=== PATIENT | male | born 1970 | race Caucasian/White ===

== ENCOUNTER → 2017-03-03 | Outpatient (CLI) | payer SELFPAY ==
[~2017-03-03] MED LIST: ALBU8.5H2 IH; ASPI-892 PO; ASPI-983 PO; ASPI-999 PO; CARV3.12 PO; CARV3.122 PO; COCO1000 PO; COCONUT OIL PO; DIGO250T15 PO; FURO-124 PO; FURO40TA PO; FURO40TA4 PO; FURO80TA83 PO; IBUP-15 PO; LISI-556 PO; MAGN400T6 PO; METO-351 PO; METO-387 PO; METO2.5T PO; OMG1KC PO; POTA-51 PO; POTA10CA43 PO; POTA10TA10 PO; POTA8TAB6 PO; SPIR25TA PO; SPIR25TA3 PO; TR1O15 TOP; UBID1CAP51 PO; UBID1CAP53 PO
[2017-03-03 08:35] LABS: BUN/CREATININE RATIO 25; CALCIUM 9.7 MG/DL (8.5-10.1); CARBON DIOXIDE 25 MMOL/L (21-32); CHLORIDE 92 MMOL/L (98-107); CREATININE SERUM 1.12 MG/DL (0.60-1.30); GFR ESTIMATED > 60; GLUCOSE 113 MG/DL (70-105); POTASSIUM 4.4 MMOL/L (3.6-5.0); SODIUM 130 MMOL/L (135-145)
== END ==
LOC: LAB 08:01
PROVIDERS: ATTEND Nurse Practitioner Family
DX: I50.9 Heart failure, unspecified (principal)
CPT/HCPCS: 36415; 80048; 83735

== ENCOUNTER → 2017-03-03 | Outpatient (CLI) | payer SELFPAY ==
--- NOTE | 2017-03-03 15:10 | Diagnostic Imaging Report ---
PET/CT. INDICATION: Enlarged paratracheal nodes. After intravenous administration of 12.51 mCi of F18-FDG, a series of overlapping emission and transmission PET images was obtained. In the coronal, transaxial and sagittal planes, the area imaged extended from the skull base through the upper thighs. There are no previous PET/CT examinations available for comparison. FINDINGS: The recent CTA chest exam of 02/26/17 noted several enlarged paratracheal lymph nodes measuring up to 2.3 cm in short axis. On this exam, those nodes are again evident and do not seem to have changed significantly in size. There is no hypermetabolic activity associated with these nodes to suggest that they are neoplastic, however. I suspect that they are reactive nodes although the precise etiology is not certain. No other hypermetabolic activity is seen to suggest the presence of neoplasm. There is slightly increased activity involving the larynx but there is no sign of a mass in this area. The increased activity (maximum SUV 3.5) is probably physiologic in nature. As noted on the CT exam, the heart is enlarged. There is no acute abnormality of the neck, chest, abdomen or pelvis on the CT images. There is degenerative disc and bony disease in the lumbar spine and there does seem to be spinal stenosis at L4-L5 and L5-S1. If further study is desired, then MRI would be recommended. IMPRESSION: 1. There is no hypermetabolic activity to suggest the presence of neoplasm. In particular, the paratracheal nodes seen on the previous CT exam are not hypermetabolic. These may represent reactive nodes. 2. If further evaluation of the nodes in the mediastinum is desired, then a short-term (4-6 week) followup CT chest exam would be recommended. 3. There is no acute abnormality of the chest, abdomen or pelvis. 4. These results will be discussed with Dr. Salome Luna. Dictated on workstation # [id number]
== END ==
LOC: RAD 07:58
PROVIDERS: ATTEND Pediatrics
DX: R59.0 Localized enlarged lymph nodes (principal)

== ENCOUNTER 2017-03-23 19:55 | Outpatient (CLI) | payer SELFPAY | END 2017-03-24 06:10 | disposition home or self-care (01) | LOC: SLEEP 19:55 | PROVIDERS: ATTEND Nurse Practitioner Family | DX: G47.33 Obstructive sleep apnea (adult) (pediatric) (principal); I42.9 Cardiomyopathy, unspecified; I50.9 Heart failure, unspecified; E66.01 Morbid (severe) obesity due to excess calories | CPT/HCPCS: 95810 ==

== ENCOUNTER → 2017-04-07 | Outpatient (CLI) | payer SELFPAY ==
[~2017-04-07] MED LIST changes: +IOHEXOL 350 MG/ML 100 ML (OMNIPAQUE 350) VIAL IV ONE; +NS 250 ML (IVPB) BAG IV ONE
--- NOTE | 2017-04-07 13:03 | Diagnostic Imaging Report ---
PROCEDURE: CT chest with contrast only. TECHNIQUE: Multiple contiguous axial images were obtained through the chest after administration of intravenous contrast. INDICATION: Congestive heart failure. Exam compared with 02/26/2017. FINDINGS: The pulmonary arterial branches remain patent. The aorta is patent and nonaneurysmal. Cardiomegaly improved. There is no pleural or pericardial effusion. There has been resolution of mediastinal lymphadenopathy. No suspicious daryl mass or abnormal mediastinal soft tissue infiltration on followup. Venessa appeared normal. There is no focal infiltrate. No lung mass. There are no findings of alveolar or interstitial edema. No abnormal venous distention. The visualized upper abdomen negative. IMPRESSION: Decreased heart size. Clear lungs with no edema or thoracic effusion. Resolution of previous nonspecific mediastinal adenopathy. Dictated by: Dictated on workstation # [id number]
== END ==
LOC: RAD 11:56
PROVIDERS: ATTEND Nurse Practitioner Family
DX: I50.9 Heart failure, unspecified (principal); R59.1 Generalized enlarged lymph nodes
CPT/HCPCS: 71260

== ENCOUNTER → 2017-05-12 | Outpatient (CLI) | payer OTHER ==
[~2017-05-12] MED LIST changes: -IOHEXOL 350 MG/ML 100 ML (OMNIPAQUE 350) VIAL IV ONE; -NS 250 ML (IVPB) BAG IV ONE
== END ==
LOC: CARD 08:57
PROVIDERS: ATTEND Internal Medicine Cardiovascular Disease
DX: I42.0 Dilated cardiomyopathy (principal); I50.22 Chronic systolic (congestive) heart failure; G47.33 Obstructive sleep apnea (adult) (pediatric); E66.8 Other obesity; I34.0 Nonrheumatic mitral (valve) insufficiency
CPT/HCPCS: 93306

== ENCOUNTER → 2017-07-01 | Outpatient (CLI) | payer OTHER | LOC: CARD 09:03 | PROVIDERS: ATTEND Internal Medicine Cardiovascular Disease | DX: I42.0 Dilated cardiomyopathy (principal); I50.9 Heart failure, unspecified; I08.1 Rheumatic disorders of both mitral and tricuspid valves; G47.33 Obstructive sleep apnea (adult) (pediatric); E66.8 Other obesity | CPT/HCPCS: 93306 ==

== ENCOUNTER → 2018-01-25 | Outpatient (CLI) | payer OTHER ==
[~2018-01-25] MED LIST changes: -SPIR25TA3 PO; +SPIR25TA5 PO
[2018-01-25 12:21] LABS: ALANINE AMINOTRANSFERASE 31 U/L (0-55); ALBUMIN 4.6 GM/DL (3.2-4.5); ALKALINE PHOSPHATASE 70 U/L (40-136); BILIRUBIN,TOTAL 0.6 MG/DL (0.1-1.0); BUN/CREATININE RATIO 14; CALCIUM 9.9 MG/DL (8.5-10.1); CARBON DIOXIDE 22 MMOL/L (21-32); CHLORIDE 103 MMOL/L (98-107); CREATININE SERUM 1.01 MG/DL (0.60-1.30); GFR ESTIMATED > 60; GLUCOSE 104 MG/DL (70-105); SODIUM 137 MMOL/L (135-145); TOTAL PROTEIN 8.3 GM/DL (6.4-8.2)
[2018-01-25 12:27] LABS: DIGOXIN < 0.30 NG/ML (0.80-2.00)
== END ==
LOC: CARD 11:16
PROVIDERS: ATTEND Nurse Practitioner Family
DX: I42.0 Dilated cardiomyopathy (principal); I50.22 Chronic systolic (congestive) heart failure; G47.33 Obstructive sleep apnea (adult) (pediatric); I07.1 Rheumatic tricuspid insufficiency; E66.01 Morbid (severe) obesity due to excess calories; Z68.41 Body mass index [BMI] 40.0-44.9, adult
CPT/HCPCS: 36415; 80053; 80162; 93306

== ENCOUNTER 2020-08-10 09:37 | Inpatient (IN) | payer OTHER ==
[~2020-08-10] VITALS: Ht 177.8 cm; Wt 126.8 kg
[~2020-08-10 09:37] MED LIST changes: +ASPI-1238 PO; -ASPI-983 PO; +LISI-729 PO; +MAGN400T8 PO; -METO-387 PO; +MTP25TSR PO
[2020-08-10 10:25] LABS: BASOPHILS % (AUTO) 0 % (0-10); EOSINOPHILS # (AUTO) 0.1 10^3/uL (0.0-0.3); EOSINOPHILS % (AUTO) 1 % (0-10); HEMATOCRIT 47 % (40-54); HEMOGLOBIN 15.6 g/dL (13.3-17.7); LYMPHOCYTES # (AUTO) 1.6 10^3/uL (1.0-4.0); LYMPHOCYTES % (AUTO) 15 % (12-44); MEAN CORPUSCULAR HEMOGLOBIN 29 pg (25-34); MEAN CORPUSCULAR HGB CONC 33 g/dL (32-36); MEAN CORPUSCULAR VOLUME 87 fL (80-99); MEAN PLATELET VOLUME 11.1 fL (9.0-12.2); MONOCYTES # (AUTO) 0.9 10^3/uL (0.0-1.0); MONOCYTES % (AUTO) 8 % (0-12); NEUTROPHILS # (AUTO) 8.1 10^3/uL (1.8-7.8); NEUTROPHILS % (AUTO) 76 % (42-75); PLATELET COUNT 300 10^3/uL (130-400); WHITE BLOOD COUNT 10.7 10^3/uL (4.3-11.0)
[2020-08-10] MEDS ORDERED: dilTIAZem DRIP PRE-MIX 125 ML IV SCH (10:30)
[2020-08-10 10:32] LABS: INR 1.1 (0.8-1.4); PROTHROMBIN TIME PATIENT 14.7 SEC (12.2-14.7)
[2020-08-10 10:38] LABS: MAGNESIUM 1.9 MG/DL (1.6-2.4)
[2020-08-10 10:40] LABS: ALANINE AMINOTRANSFERASE 38 U/L (0-55); ALBUMIN 3.9 GM/DL (3.2-4.5); ALKALINE PHOSPHATASE 69 U/L (40-136); BILIRUBIN,TOTAL 1.2 MG/DL (0.1-1.0); BUN/CREATININE RATIO 19; CALCIUM 9.2 MG/DL (8.5-10.1); CARBON DIOXIDE 22 MMOL/L (21-32); CHLORIDE 103 MMOL/L (98-107); CREATININE SERUM 1.18 MG/DL (0.60-1.30); GFR ESTIMATED > 60; GLUCOSE 146 MG/DL (70-105); POTASSIUM 4.1 MMOL/L (3.6-5.0); SODIUM 135 MMOL/L (135-145); TOTAL PROTEIN 7.1 GM/DL (6.4-8.2)
--- NOTE | 2020-08-10 11:11 | Diagnostic Imaging Report ---
INDICATION: Shortness of breath COMPARISON: 02/26/2017 FINDINGS: Single view chest demonstrates increasing cardiac enlargement with mild interstitial edema. There is no pneumothorax or effusion. Osseous structures stable. IMPRESSION: CHF. Dictated by: Dictated on workstation # [id number]
[2020-08-10 11:29] LABS: BILIRUBIN,URINE NEGATIVE (NEGATIVE); CLARITY,URINE CLEAR; COLOR,URINE ORANGE; GLUCOSE, URINE (UA) NEGATIVE (NEGATIVE); KETONES,URINE NEGATIVE (NEGATIVE); LEUKOCYTE ESTERASE ,URINE NEGATIVE (NEGATIVE); NITRITE,URINE NEGATIVE (NEGATIVE); PH,URINE 5.5 (5-9); PROTEIN,URINE NEGATIVE (NEGATIVE)
[2020-08-10] MEDS ORDERED: LORazepam INJ 2 MG/ML (ATIVAN) VIAL IVP ONE (11:30)
[2020-08-10 11:47] LABS: AMORPHOUS SEDIMENT,UR RARE AMOR URATES /LPF; BACTERIA,URINE NEGATIVE /HPF; SQUAMOUS EPITHELIAL CELL,UR RARE /HPF
--- NOTE | 2020-08-10 11:47 | ED Respiratory ---
General Chief Complaint: Respiratory Problems Stated Complaint: SOB Nursing Triage Note: ARRIVED VIA AMB WITH COMPLAINTS OF INCREASING SOA OVER THE LAST WEEK. DENIES CHEST PAIN Source: patient Exam Limitations: no limitations (VANNESA RANDALL APRN) History of Present Illness Date Seen by Provider: Aug 10, 2020 Time Seen by Provider: 11:47 Initial Comments to ER with general malaise for about 1 week. Has been short of breath for 3 days. History of CHF and was formerly on Lasix but has not followed with Dr. Cason in over a year. He quit all of his medications over 6 months ago so he has been without medications for 6 months. Last echocardiogram from February 2017 shows a dilated cardiomyopathy with ejection fraction of 10 to 15%. He has a history of obstructive sleep apnea and does not use his CPAP. His CT from 2017 showed some enlarged paratracheal lymph nodes which might have been sales representative publications of a lymphoma he is not followed up on that either. Timing/Duration: constant, getting worse Severity: moderate Associated Symptoms: cough, shortness of breath (VANNESA RANDALL APRN) Allergies and Home Medications Allergies Coded Allergies: No Known Drug Allergies (Unverified , 04/18/14) Home Medications Aspirin 81 Mg Tablet.dr, 81 MG PO DAILY Prescribed by: JONATHAN RUST on 02/27/17 1019 Coconut Oil 1,000 Mg Capsule, 1,000 MG PO DAILY, (Reported) Digoxin 250 Mcg Tablet, 0.25 MG PO DAILY Prescribed by: JONATHAN RUST on 02/27/17 1019 Furosemide 80 Mg Tablet, 80 MG PO DAILY Prescribed by: JONATHAN RUST on 02/27/17 1019 Lisinopril 5 Mg Tablet, 5 MG PO DAILY, (Reported) LAST FILLED #30 09-12-15 Magnesium Oxide 400 Mg Tablet, 400 MG PO DAILY, (Reported) LAST FILLED #30 02-28-16 Metolazone 2.5 Mg Tablet, 2.5 MG PO DAILY Prescribed by: JONATHAN RUST on 02/27/17 1019 Metoprolol Succinate 25 Mg Tab.er.24h, 25 MG PO DAILY Prescribed by: JONATHAN RUST on 02/27/17 1019 [place] 3 Polyunsat Fatty Acids 1,000 Mg Cap, 1,000 MG PO DAILY, (Reported) Potassium Chloride 20 Meq Tablet.er, 20 MEQ PO DAILY Prescribed by: JONATHAN RUST on 02/27/17 1019 Spironolactone 25 Mg Tablet, 25 MG PO DAILY Prescribed by: JONATHAN RUST on 02/27/17 1019 Ubidecarenone/Vit E Acetate 1 Each Capsule, 1 CAP PO DAILY, (Reported) Patient Home Medication List Home Medication List Reviewed: Yes (VANNESA RANDALL APRN) Review of Systems Review of Systems Constitutional: see HPI EENTM: see HPI Respiratory: see HPI, dyspnea on exertion, short of breath Cardiovascular: see HPI, palpitations Genitourinary: no symptoms reported Musculoskeletal: no symptoms reported Skin: no symptoms reported Psychiatric/Neurological: No Symptoms Reported Hematologic/Lymphatic: No Symptoms Reported (VANNESA RANDALL APRN) Past Ukqhoel-Zidjsy-Qwexjc Hx Patient Social History Alcohol Use: Denies Use Smoking Status: Never a Smoker Recent Infectious Disease Expo: No Recent Hopitalizations: No (VANNESA RANDALL APRN) Immunizations Up To Date PED Vaccines UTD: No Date of Pneumonia Vaccine: Apr 18, 2014 Date of Influenza Vaccine: Apr 18, 2014 (VANNESA RANDALL APRN) Seasonal Allergies Seasonal Allergies: No (VANNESA RANDALL APRN) Past Medical History Surgeries: No Respiratory: Yes (undiagnosed COPD) Sleep Apnea Currently Using CPAP: Yes Cardiac: Yes (CHF) Neurological: No Reproductive Disorders: No Sexually Transmitted Disease: No HIV/AIDS: No Genitourinary: No Gastrointestinal: Yes Gastroesophageal Reflux Musculoskeletal: No Endocrine: No HEENT: No Loss of Vision: Denies Cancer: No Psychosocial: No Integumentary: Yes ("RASH" (APPEARS TO BE PSORIASIS)) Blood Disorders: No Adverse Reaction/Blood Tranf: No (VANNESA RANDALL APRN) Family Medical History Diabetes mellitus 19 MOTHER Hypertension 19 FATHER Diabetes, Hypertension (VANNESA RANDALL APRN) Physical Exam Vital Signs - First Documented 08/10/20 09:47 Temp 37.0 Pulse 156 Resp 22 B/P (MAP) 158/138 (145) Pulse Ox 97 O2 Delivery Room Air (JASVIR RUBIO MD) Capillary Refill : Less Than 3 Seconds (VANNESA RANDALL APRN) Height: 5'10.00" Weight: 273lbs. 0.0oz. 123.013024st; 38.00 BMI Method:Stated General Appearance: moderate distress, obese, other (Appears quite dyspneic. Heart rate is 158 regular. Blood pressure 111/96. We have started a Cardizem drip and at this point titrated up to 15 mg/h. I tried 2 doses of adenosine 12 mg apiece. These failed to have any result whatsoever on rhythm or rate.) Eyes: Bilateral Eye Normal Inspection, Bilateral Eye PERRL, Bilateral Eye EOMI HEENT: PERRL/EOMI, normal ENT inspection Neck: non-tender, full range of motion Respiratory: lungs clear, accessory muscle use Cardiovascular: no murmur, tachycardia Gastrointestinal: normal bowel sounds, non tender, soft Extremities: No pedal edema Neurologic/Psychiatric: alert, normal mood/affect, oriented x 3 Skin: normal color, warm/dry (VANNESA RANDALL APRN) Focused Exam Lactate Level 08/10/20 10:10: Lactic Acid Level 1.76 (JASVIR RUBIO MD) Lactic Acid Level Laboratory Tests Test 08/10/20 10:10 Lactic Acid Level 1.76 MMOL/L (0.50-2.00) (JASVIR RUBIO MD) Progress/Results/Core Measures Suspected Sepsis Recent Fever Within 48 Hours: No Infection Criteria Present: Suspected New Infection New/Unexplained Altered Menta: No Sepsis Screen: Possible Severe Sepsis Risk SIRS Temperature: Pulse: 156 Respiratory Rate: 22 Laboratory Tests 08/10/20 10:10: White Blood Count 10.7 Blood Pressure 158 /138 Mean: 145 08/10/20 10:10: Lactic Acid Level 1.76 Laboratory Tests 08/10/20 10:10: Creatinine 1.18, INR Comment 1.1, Platelet Count 300, Total Bilirubin 1.2H (VANNESA RANDALL APRN) Results/Orders Lab Results Laboratory Tests Test 08/10/20 09:57 08/10/20 10:10 08/10/20 11:21 Range/Units Influenza Type A (RT-PCR) Not Detected Not Detecte Influenza Type B (RT-PCR) Not Detected Not Detecte SARS-CoV-2 RNA (RT-PCR) Not Detected Not Detecte White Blood Count 10.7 4.3-11.0 10^3/uL Red Blood Count 5.47 4.30-5.52 10^6/uL Hemoglobin 15.6 13.3-17.7 g/dL Hematocrit 47 40-54 % Mean Corpuscular Volume 87 80-99 fL Mean Corpuscular Hemoglobin 29 25-34 pg Mean Corpuscular Hemoglobin Concent 33 32-36 g/dL Red Cell Distribution Width 14.1 10.0-14.5 % Platelet Count 300 130-400 10^3/uL Mean Platelet Volume 11.1 9.0-12.2 fL Immature Granulocyte % (Auto) 1 % Neutrophils (%) (Auto) 76 H 42-75 % Lymphocytes (%) (Auto) 15 12-44 % Monocytes (%) (Auto) 8 0-12 % Eosinophils (%) (Auto) 1 0-10 % Basophils (%) (Auto) 0 0-10 % Neutrophils # (Auto) 8.1 H 1.8-7.8 10^3/uL Lymphocytes # (Auto) 1.6 1.0-4.0 10^3/uL Monocytes # (Auto) 0.9 0.0-1.0 10^3/uL Eosinophils # (Auto) 0.1 0.0-0.3 10^3/uL Basophils # (Auto) 0.0 0.0-0.1 10^3/uL Immature Granulocyte # (Auto) 0.1 0.0-0.1 10^3/uL Prothrombin Time 14.7 12.2-14.7 SEC INR Comment 1.1 0.8-1.4 Activated Partial Thromboplast Time 30 24-35 SEC D-Dimer 0.45 0.00-0.49 UG/ML Sodium Level 135 135-145 MMOL/L Potassium Level 4.1 3.6-5.0 MMOL/L Chloride Level 103 98-107 MMOL/L Carbon Dioxide Level 22 21-32 MMOL/L Anion Gap 10 5-14 MMOL/L Blood Urea Nitrogen 23 H 7-18 MG/DL Creatinine 1.18 0.60-1.30 MG/DL Estimat Glomerular Filtration Rate > 60 BUN/Creatinine Ratio 19 Glucose Level 146 H 70-105 MG/DL Lactic Acid Level 1.76 0.50-2.00 MMOL/L Calcium Level 9.2 8.5-10.1 MG/DL Corrected Calcium 9.3 8.5-10.1 MG/DL Magnesium Level 1.9 1.6-2.4 MG/DL Total Bilirubin 1.2 H 0.1-1.0 MG/DL Aspartate Amino Transf (AST/SGOT) 25 5-34 U/L Alanine Aminotransferase (ALT/SGPT) 38 0-55 U/L Alkaline Phosphatase 69 40-136 U/L Myoglobin 58.1 10.0-92.0 NG/ML Troponin I 0.049 H <0.028 NG/ML C-Reactive Protein High Sensitivity 0.74 H 0.00-0.50 MG/DL B-Type Natriuretic Peptide 775.3 H <100.0 PG/ML Total Protein 7.1 6.4-8.2 GM/DL Albumin 3.9 3.2-4.5 GM/DL Urine Color ORANGE Urine Clarity CLEAR Urine pH 5.5 5-9 Urine Specific [place] >=1.030 1.016-1.022 Urine Protein NEGATIVE NEGATIVE Urine Glucose (UA) NEGATIVE NEGATIVE Urine Ketones NEGATIVE NEGATIVE Urine Nitrite NEGATIVE NEGATIVE Urine Bilirubin NEGATIVE NEGATIVE Urine Urobilinogen 1.0 < = 1.0 MG/DL Urine Leukocyte Esterase NEGATIVE NEGATIVE Urine RBC (Auto) NEGATIVE NEGATIVE Urine RBC NONE /HPF Urine WBC NONE /HPF Urine Squamous Epithelial Cells RARE /HPF Urine Crystals PRESENT H /LPF Urine Amorphous Sediment RARE MARILU URATES H /LPF Urine Bacteria NEGATIVE /HPF Urine Casts NONE /LPF Urine Mucus SMALL H /LPF Urine Culture Indicated CULTURE PENDING (JASVIR RUBIO MD) My Orders Orders - JASVIR RUBIO MD Covid 19 Inhouse Test (08/10/20 09:56) Influenza A And B By Pcr (08/10/20 09:56) Cbc With Automated Diff (08/10/20 10:17) Comprehensive Metabolic Panel (08/10/20 10:17) Blood Culture (08/10/20 10:17) Sputum Culture (08/10/20 10:17) Urinalysis (08/10/20 10:17) Urine Culture (08/10/20 10:17) Protime With Inr (08/10/20 10:17) Partial Thromboplastin Time (08/10/20 10:17) Chest 1 View, Ap/Pa Only (08/10/20 10:17) Ed Iv/Invasive Line Start (08/10/20 10:17) Ed Iv/Invasive Line Start (08/10/20 10:17) Vital Signs Adult Sepsis Patie Q15M (08/10/20 10:17) O2 (08/10/20 10:17) Remove Rings In Anticipation O (08/10/20 10:17) Lactic Acid Analyzer (08/10/20 10:17) Hs C Reactive Protein (08/10/20 10:17) Magnesium (08/10/20 10:17) Ekg Tracing (08/10/20 10:17) Myoglobin Serum (08/10/20 10:17) Monitor-Rhythm Ecg Trace Only (08/10/20 10:17) Troponin I (08/10/20 10:17) Diltiazem Drip Pre-Mix (Cardizem Drip Pr (08/10/20 10:30) Diltiazem Injection (Cardizem Injection) (08/10/20 10:30) BNP (08/10/20 10:33) Lorazepam Injection (Ativan Injection) (08/10/20 11:30) (JASVIR RUBIO MD) Vital Signs/I&O 08/10/20 09:47 Temp 37.0 Pulse 156 Resp 22 B/P (MAP) 158/138 (145) Pulse Ox 97 O2 Delivery Room Air (JASVIR RUBIO MD) Vital Signs/I&O Capillary Refill : Less Than 3 Seconds (VANNESA RANDALL APRN) Blood Pressure Mean: 145 Departure Communication (Admissions) 1220-he is hemodynamically stable with a rate persistently at 158 which has not budged with Cardizem or adenosine. Blood pressure stable at 110/89. Unknown how long he has been in this rhyth and is hemodynamically stable so cannot justify electrical cardioversion. Spoke with Dr. Cason. We will give 0.5 mg of digoxin IV now as well as Eliquis. We will then do digoxin 0.25 mg IV every 2 hours x2 upstairs. He will be admitted to ICU to the medical service. I did put the patient on BiPAP (at 10/5 35% FiO2) for his tachypnea (RR-28)/dyspnea. He was never hypoxic and not in overt respiratory failure. 1234-he does feel symptomatically improved while wearing the BiPAP so we will continue it. (VANNESA RANDALL APRN) Impression Primary Impression: Atrial flutter with rapid ventricular response Additional Impression: CHF (congestive heart failure) Disposition: ADMITTED INPATIENT Condition: Stable Admissions Decision to Admit Reason: Admit from ER (General) Decision to Admit/Date: Aug 10, 2020 Time/Decision to Admit Time: 12:01 (VANNESA RANDALL APRN) Departure-Patient Inst. Referrals: KYM JORDAN DO (PCP) Primary Care Physician SEAN GORDON APRN (Family) Primary Care Physician ATTENDING PHYSICIAN NOTE: I was physically present as attending physician in the emergency department during the care of this patient, but I was not directly involved in the decision making or delivery of care for this patient. (JASVIR RUBIO MD) VANNESA RANDALL APRN Aug 10, 2020 11:47 JASVIR RUBIO MD Aug 11, 2020 06:33
[2020-08-10] MEDS ORDERED: ADENOSINE 6 MG/2 ML (ADENOCARD) VIAL IV ONE ×3 (11:54→12:15)
[2020-08-10 12:18] VITALS: BP 110/89
[2020-08-10] MEDS ORDERED: DIGOXIN 0.25 MG/ML (LANOXIN) 2 ML AMP IV ONE (12:30)
[2020-08-10] MEDS ORDERED: APIXABAN 5 MG (ELIQUIS) TABLET PO ONE (12:30)
[2020-08-10 14:12] VITALS: BP 158/138
[2020-08-10] MEDS ORDERED: CATHETER FLUSH 10 ML SYR IV PRN (14:15)
[2020-08-10] MEDS: CATHETER FLUSH 10 ML SYR IV SCH ×2 (14:23→19:54)
[2020-08-10] MEDS: dilTIAZem DRIP PRE-MIX 125 ML IV SCH ×2 (14:24→18:42)
[2020-08-10] MEDS ORDERED: FUROSEMIDE 40 MG/4 ML INJ (LASIX) IVP NR (14:30)
[2020-08-10] MEDS ORDERED: KCL 20 MEQ TAB (K-DUR) PO NR (14:30)
--- NOTE | 2020-08-10 14:46 | Consultation-Cardiology ---
HPI-Cardiology Cardiology Consultation: Date of Consultation 08/10/20 Time Seen by a Provider: 14:25 Date of Admission 08-10-20 Attending Physician Vickey Pineda MD Admitting Physician [place] Consulting Physician Dea Macario MD HPI: Chief Complaint: New onset a-fib/flutter Acute decompensated CHF Mr. Ellis is a 49 yr old male admitted to ICU 12 from the ED with new onset a- fib/flutter with RVR and decompensated CHF. He states for the last week he has felt increasing SOB and rapid heart beat. No c/o CP, LE swelling, syncope or near syncope. He reports he has not been using his Bi-pap for over a year and has not been taking any of his medications for over a year. He denies any fever chills. No c/o n/v/d. Review of Systems-Cardiology Review of Systems Constitutional: No chills, No fever; tiredness Eyes: No vision change Ears/Nose/Throat: No epistaxis, No recent hearing loss Respiratory: As described under HPI Cardiovascular: As described under HPI Gastrointestinal: No constipation, No diarrhea, No nausea, No vomiting Genitourinary: No dysuria, No hematuria Musculoskeletal: no symptoms reported Skin: No rash on exposed areas, No ulcerations on exposed areas Psychiatric/Neurological: No anxiety, No depression, No seizure, No focal weakness, No syncope Hematologic: No bleeding abnormalities WPU-Kbqaao-Ybpgcq Hx Patient Social History Smoking Status: Never a Smoker Have you traveled recently?: No Immunizations Up To Date Date of Pneumonia Vaccine: Apr 18, 2014 Date of Influenza Vaccine: Apr 18, 2014 Past Medical History PMH As described under Assessment. Family Medical History Family Medical History: He reports his father had HTN. Family History: Diabetes mellitus 19 MOTHER Hypertension 19 FATHER Allergies and Home Medications Allergies Coded Allergies: No Known Drug Allergies (Unverified , 04/18/14) Home Medications Apixaban 5 Mg Tablet, 5 MG PO BID Prescribed by: EDGAR CHOPRA on 08/13/20 1059 Aspirin 81 Mg Tablet.dr, 81 MG PO DAILY Prescribed by: JONATHAN RUST on 02/27/17 1019 Carvedilol 3.125 Mg Tablet, 3.125 MG PO BID Prescribed by: EDGAR CHOPRA on 08/13/20 1059 Coconut Oil 1,000 Mg Capsule, 1,000 MG PO DAILY, (Reported) Digoxin 250 Mcg Tablet, 0.25 MG PO DAILY Prescribed by: JONATHAN RUST on 02/27/17 1019 Diltiazem HCl 180 Mg Cap.er.24h, 180 MG PO DAILY Prescribed by: EDGAR CHOPRA on 08/13/20 1059 Furosemide 80 Mg Tablet, 80 MG PO DAILY Prescribed by: JONATHAN RUST on 02/27/17 1019 Lisinopril 5 Mg Tablet, 5 MG PO DAILY, (Reported) LAST FILLED #30 09-12-15 Magnesium Oxide 400 Mg Tablet, 400 MG PO DAILY, (Reported) LAST FILLED #30 02-28-16 Metolazone 2.5 Mg Tablet, 2.5 MG PO DAILY Prescribed by: JONATHAN RUST on 02/27/17 1019 [place] 3 Polyunsat Fatty Acids 1,000 Mg Cap, 1,000 MG PO DAILY, (Reported) Pantoprazole Sodium 40 Mg Tablet.dr, 40 MG PO DAILY Prescribed by: EDGAR CHOPRA on 08/13/20 1059 Potassium Chloride 20 Meq Tablet.er, 20 MEQ PO DAILY Prescribed by: OJNATHAN RUST on 02/27/17 101 Spironolactone 25 Mg Tablet, 25 MG PO DAILY Prescribed by: JONATHAN RUST on 02/27/17 1019 Ubidecarenone/Vit E Acetate 1 Each Capsule, 1 CAP PO DAILY, (Reported) Physical Exam-Cardiology Physical Exam Vital Signs/I&O 08/15/20 00:00 Intake Total 1460 ml Balance 1460 ml Capillary Refill : Less Than 3 Seconds Constitutional: AAO x 3, well-developed, well-nourished HEENT: PERRL, hearing is well preserved, oral hygience is good Neck: No carotid bruit; carotid pulses are 2 + bilaterally Respiratory: No accessory muscle use, No respiratory distress; chest expansion is symmetric, chest is bilaterally symmetric, other (diminished lower lobes bilat) Cardiovascular: irregularly irregular; No JVD; S1 and S2 Gastrointestinal: No tender; soft, round, audible bowel sounds Extremities: no lower extremity edema bilateral Neurologic/Psychiatric: grossly intact (moves all extremities) Skin: No rash on exposed areas, No ulcerations on exposed areas Data Review Labs Microbiology 08/10/20 Urine Culture - Final, Complete NO GROWTH 08/10/20 Blood Culture - Preliminary, Resulted No growth Radiology NAME: MIGDALIA ELLIS [facility] REC#: [id number] PT STATUS: REG ER : 1970 PHYSICIAN: JASVIR RUBIO MD ADMIT DATE: 08/10/20/ER Draft Date of Exam:08/10/20 CHEST 1 VIEW, AP/PA ONLY INDICATION: Shortness of breath COMPARISON: 02/26/2017 FINDINGS: Single view chest demonstrates increasing cardiac enlargement with mild interstitial edema. There is no pneumothorax or effusion. Osseous structures stable. IMPRESSION: CHF. Dictated on workstation # [id number] Dict: 08/10/20 1109 Trans: 08/10/20 1111 [facility] [id number] Interpreted by: CYN ALLEN Electronically signed by: ECG Impression ECG Comment Atrial fib/flutter A/P-Cardiology Assessment/Admission Diagnosis New onset a-fib/flutter Acute on chronic systolic CHF d/t decompensated CHF d/t dilated cardiomyopathy d/t non-compliance with medications of treatment of ANISA Mild troponin elevation likely secondary to acute decompensated CHF and/or a- fib/flutter with RVR Non ischemic dilated cardiomyopathy. - Cardiomyopathy first diagnosed in April 2014 and improved with treatment to LVEF of 45-50% on echo eval of May 2015; then had recurrence due to noncompliance. - Echo of 02/24/17 shows marked cardiomegaly and LVEF 10 to 15%. Most recent echo of Dec 2018 showed LVEF improved to 50-55% with mild to mod regurg, RVSP [address] angio of the chest on 02/26/17 shows mediastinal lymphadenopathy: lymphoma is a concern. This is being followed by Dr Connolly (his manager commodities) and Dr Brittanie Luna (his pcp) ANISA for which he is on Bi-pap tx (followed by Dr. Connolly) Abnormally enlarged paratracheal lymph nodes measuring up to maximally 2.3 cm in short axis with multiple subcentimeter short axis AP window lymph nodes. Metastatic disease and lymphoma would be in the differential diagnosis for these abnormally enlarged lymph nodes. Per CTA of 02-26-17 No significant coronary artery disease (angiographically normal coronary arteries with a right dominant system) per cardiac cath of 04-18-2014 Obesity, BMI of approx 41 Quit smoking in 2012 Erectile dysfunction Discussion and Recomendations New onset a-fib/flutter with RVR - treat with IV Cardizem and Dig Start OAC with Eliquis for stroke prophylaxis Acute on chronic decompensated CHF - treat with diuretics Echocardiogram to eval LVEF Discussed the importance of compliance with medications and Bi-pap Monitor lab closely Further recs will be based on his hospital course JONATHAN RUST Aug 10, 2020 14:46
[2020-08-10] MEDS: DIGOXIN 0.25 MG/ML (LANOXIN) 2 ML AMP IV SCH ×2 (14:51→17:53)
[2020-08-10] MEDS: RT-ALBUTEROL/IPRATROPIUM 3 ML (DUONEB) VIAL INH SCH ×2 (15:13→22:19)
--- NOTE | 2020-08-10 15:30 | Consultation-Cardiology ---
HPI-Cardiology Cardiology Consultation: Date of Consultation 08/10/20 Time Seen by a Provider: 15:00 Date of Admission Attending Physician Vickey Pineda MD Admitting Physician [place] Consulting Physician MICHAEL CADENA MD, MA, FACP, FACC, FSCAI, CCDS HPI: Chief Complaint: Reason for consultation: New onset a-fib/flutter and acute, decompensated CHF HPI Mr. Ellis is a 49 yr old male admitted to ICU 12 from the ED with new onset a-fib/flutter with RVR and decompensated CHF. He states for the last week he has felt increasing SOB and rapid heart beat. No c/o CP, LE swelling, syncope or near syncope. He reports he has not been using his Bi-pap for over a year and has not been taking any of his medications for over a year. He denies any fever chills. No c/o n/v/d. Review of Systems-Cardiology Review of Systems Constitutional: No chills, No fever; tiredness Eyes: No vision change Ears/Nose/Throat: No epistaxis, No recent hearing loss Respiratory: As described under HPI Cardiovascular: As described under HPI Gastrointestinal: No constipation, No diarrhea, No nausea, No vomiting Genitourinary: No dysuria, No hematuria Musculoskeletal: no symptoms reported Skin: No rash on exposed areas, No ulcerations on exposed areas Psychiatric/Neurological: No anxiety, No depression, No seizure, No focal weakness, No syncope Hematologic: No bleeding abnormalities FYC-Jbgxnl-Vqldrv Hx Patient Social History Smoking Status: Never a Smoker Have you traveled recently?: No Immunizations Up To Date Date of Pneumonia Vaccine: Apr 18, 2014 Date of Influenza Vaccine: Apr 18, 2014 Past Medical History PMH As described under Assessment. Family Medical History Family Medical History: He reports his father had HTN. Family History: Diabetes mellitus 19 MOTHER Hypertension 19 FATHER Allergies and Home Medications Allergies Coded Allergies: No Known Drug Allergies (Unverified , 04/18/14) Home Medications Aspirin 81 Mg Tablet.dr, 81 MG PO DAILY Prescribed by: JONATHAN RUST on 02/27/17 1019 Coconut Oil 1,000 Mg Capsule, 1,000 MG PO DAILY, (Reported) Digoxin 250 Mcg Tablet, 0.25 MG PO DAILY Prescribed by: JONATHAN RUST on 02/27/17 1019 Furosemide 80 Mg Tablet, 80 MG PO DAILY Prescribed by: JONATHAN RUST on 02/27/17 1019 Lisinopril 5 Mg Tablet, 5 MG PO DAILY, (Reported) LAST FILLED #30 09-12-15 Magnesium Oxide 400 Mg Tablet, 400 MG PO DAILY, (Reported) LAST FILLED #30 02-28-16 Metolazone 2.5 Mg Tablet, 2.5 MG PO DAILY Prescribed by: JONATHAN RUST on 02/27/17 1019 Metoprolol Succinate 25 Mg Tab.er.24h, 25 MG PO DAILY Prescribed by: JONATHAN RUST on 02/27/17 1019 [place] 3 Polyunsat Fatty Acids 1,000 Mg Cap, 1,000 MG PO DAILY, (Reported) Potassium Chloride 20 Meq Tablet.er, 20 MEQ PO DAILY Prescribed by: JONATHAN RUST on 02/27/17 1019 Spironolactone 25 Mg Tablet, 25 MG PO DAILY Prescribed by: JONATHAN RUST on 02/27/17 1019 Ubidecarenone/Vit E Acetate 1 Each Capsule, 1 CAP PO DAILY, (Reported) Patient Home Medication List Home Medication List Reviewed: Yes Physical Exam-Cardiology Physical Exam Vital Signs/I&O 08/10/20 08/10/20 08/10/20 08/10/20 09:47 12:18 13:46 14:00 Temp 37.0 Pulse 156 158 156 101 Resp 22 18 28 B/P (MAP) 158/138 (145) 110/80 99/79 (86) Pulse Ox 97 100 97 98 O2 Delivery Room Air Room Air Room Air O2 Flow Rate 35.00 08/10/20 08/10/20 08/10/20 08/10/20 14:12 14:37 15:00 15:13 Temp 37.0 Pulse 156 103 99 Resp 14 B/P (MAP) 108/96 (100) Pulse Ox 97 94 98 O2 Delivery Room Air Room Air FiO2 21 Capillary Refill : Less Than 3 Seconds Constitutional: AAO x 3, well-developed, well-nourished HEENT: PERRL, hearing is well preserved, oral hygience is good Neck: No carotid bruit; carotid pulses are 2 + bilaterally Respiratory: No accessory muscle use, No respiratory distress; chest expansion is symmetric, chest is bilaterally symmetric, other (diminished lower lobes bilat) Cardiovascular: irregularly irregular; No JVD; S1 and S2 Gastrointestinal: No tender; soft, round, audible bowel sounds Extremities: no lower extremity edema bilateral Neurologic/Psychiatric: oriented x 3, other (moves all limbs equally) Skin: No rash on exposed areas, No ulcerations on exposed areas Data Review Labs Laboratory Tests 08/10/20 09:57: Influenza Type A (RT-PCR) Not Detected, Influenza Type B (RT-PCR) Not Detected, SARS-CoV-2 RNA (RT-PCR) Not Detected 08/10/20 10:10: White Blood Count 10.7, Red Blood Count 5.47, Hemoglobin 15.6, Hematocrit 47, Mean Corpuscular Volume 87, Mean Corpuscular Hemoglobin 29, Mean Corpuscular Hemoglobin Concent 33, Red Cell Distribution Width 14.1, Platelet Count 300, Mean Platelet Volume 11.1, Immature Granulocyte % (Auto) 1, Neutrophils (%) (Auto) 76H, Lymphocytes (%) (Auto) 15, Monocytes (%) (Auto) 8, Eosinophils (%) (Auto) 1, Basophils (%) (Auto) 0, Neutrophils # (Auto) 8.1H, Lymphocytes # (Auto) 1.6, Monocytes # (Auto) 0.9, Eosinophils # (Auto) 0.1, Basophils # (Auto) 0.0, Immature Granulocyte # (Auto) 0.1, Prothrombin Time 14.7, INR Comment 1.1, Activated Partial Thromboplast Time 30, D-Dimer 0.45, Sodium Level 135, Potassium Level 4.1, Chloride Level 103, Carbon Dioxide Level 22, Anion Gap 10, Blood Urea Nitrogen 23H, Creatinine 1.18, Estimat Glomerular Filtration Rate > 60, BUN/Creatinine Ratio 19, Glucose Level 146H, Lactic Acid Level 1.76, Calcium Level 9.2, Corrected Calcium 9.3, Magnesium Level 1.9, Total Bilirubin 1.2H, Aspartate Amino Transf (AST/SGOT) 25, Alanine Aminotransferase (ALT/SGPT) 38, Alkaline Phosphatase 69, Myoglobin 58.1, Troponin I 0.049H, C-Reactive Protein High Sensitivity 0.74H, B-Type Natriuretic Peptide 775.3H, Total Protein 7.1, Albumin 3.9 08/10/20 11:21: Urine Color ORANGE, Urine Clarity CLEAR, Urine pH 5.5, Urine Specific [place] >=1.030, Urine Protein NEGATIVE, Urine Glucose (UA) NEGATIVE, Urine Ketones NEGATIVE, Urine Nitrite NEGATIVE, Urine Bilirubin NEGATIVE, Urine Urobilinogen 1.0, Urine Leukocyte Esterase NEGATIVE, Urine RBC (Auto) NEGATIVE, Urine RBC NONE, Urine WBC NONE, Urine Squamous Epithelial Cells RARE, Urine Crystals PRESENTH, Urine Amorphous Sediment RARE MARILU URATESH, Urine Bacteria NEGATIVE, Urine Casts NONE, Urine Mucus SMALLH, Urine Culture Indicated CULTURE PENDING A/P-Cardiology Assessment/Admission Diagnosis New onset a-fib/flutter with RVR, probably related to untreated (due to noncompliance) ANISA Acute on chronic systolic CHF d/t decompensated CHF d/t dilated cardiomyopathy d/t non-compliance with medications of treatment of ANISA Mild troponin elevation likely secondary to acute decompensated CHF and/or a- fib/flutter with RVR Non ischemic dilated cardiomyopathy. - Cardiomyopathy first diagnosed in April 2014 and improved with treatment to LVEF of 45-50% on echo eval of May 2015; then had recurrence due to noncompliance. - Echo of 02/24/17 shows marked cardiomegaly and LVEF 10 to 15%. Most recent echo of Dec 2018 showed LVEF improved to 50-55% with mild to mod regurg, RVSP [address] angio of the chest on 02/26/17 shows mediastinal lymphadenopathy: lymphoma is a concern. This is being followed by Dr Connolly (his development associate) and Dr Brittanie Luna (his pcp) ANISA for which he is on Bi-pap tx (followed by his development associate) Abnormally enlarged paratracheal lymph nodes measuring up to maximally 2.3 cm in short axis with multiple subcentimeter short axis AP window lymph nodes. Metastatic disease and lymphoma would be in the differential diagnosis for these abnormally enlarged lymph nodes. Per CTA of 02-26-17. Managed by his pcp No significant coronary artery disease (angiographically normal coronary arteries with a right dominant system) per cardiac cath of 04-18-2014 Obesity, BMI of approx 41 Quit smoking in 2011 Erectile dysfunction Discussion and Recomendations New onset a-fib/flutter with RVR - treat with IV Cardizem and Dig Start OAC with Eliquis for stroke prophylaxis Acute on chronic decompensated CHF - treat with diuretics Echocardiogram to eval LVEF Discussed the importance of compliance with medications and Bi-pap Monitor lab closely Further recs will be based on his hospital course MICHAEL CADENA MD FACP FACC CCDS Aug 10, 2020 15:30
[2020-08-10] MEDS ORDERED: PANTOPRAZOLE 40 MG (PROTONIX) VIAL IV NR (18:00)
[2020-08-10] MEDS ORDERED: ANTACID SUSP 30 ML UDC (MYLANTA) PO PRN (18:00)
--- NOTE | 2020-08-10 18:12 | Tele-ICU Progress Note ---
Subjective Date Seen by a Provider: Aug 10, 2020 Time Seen by a Provider: 14:30 Subjective/Events-last exam This new admission reviewed with the RN. Patient has a history of congestive cardiomyopathy with estimated ejection fraction of 15% about 6 months ago. Since then he has not been compliant with his medications and the diuretics. Now he came with shortness of breath and found to have a new onset atrial fibrillation with rapid ventricular rate. The chest x-ray revealed cardiomegaly with interstitial edema. He is given Lasix. He is feeling somewhat better. He is not tolerating BiPAP well. Heart rate is controlled now with IV Cardizem drip. He also complaining of heartburn Sepsis Event Evaluation Height, Weight, BMI Height: 5'10.00" Weight: 273lbs. 0.0oz. 123.136416bb; 38.81 BMI Method:Stated Focused Exam Lactate Level 08/10/20 10:10: Lactic Acid Level 1.76 Exam Exam Patient acknowledged, consented, and participated in this virtual visit which was conducted using real time audio/video Vital Signs Date Time Temp Pulse Resp B/P (MAP) Pulse Ox O2 Delivery O2 Flow Rate FiO2 08/10/20 17:00 100 12 99/82 (88) 97 Room Air 08/10/20 16:40 Room Air 08/10/20 16:35 36.4 08/10/20 16:00 93 15 100/61 (74) 99 Room Air 08/10/20 15:13 98 Room Air 08/10/20 15:00 99 14 108/96 (100) 94 Room Air 08/10/20 14:37 103 08/10/20 14:12 37.0 156 97 21 08/10/20 14:00 Room Air 08/10/20 14:00 101 28 99/79 (86) 98 Room Air 08/10/20 13:51 36.8 08/10/20 13:46 156 18 110/80 97 Room Air 08/10/20 12:18 158 100 35.00 08/10/20 09:47 37.0 156 22 158/138 (145) 97 Room Air Height & Weight Height: 5'10.00" Weight: 273lbs. 0.0oz. 123.371638gv; 38.81 BMI Method:Stated General Appearance: No Apparent Distress, WD/WN, Chronically ill, Mild Distress, Obese, Other Capillary Refill: Less Than 3 Seconds Gastrointestinal: normal bowel sounds, non tender, soft Other comments RN patient has a bilateral few rales, regular rhythm. No rhonchi.. Results Lab Laboratory Tests 08/10/20 10:10 Meds reviewed Radiology cxr reviewed. showed cardiomegaly and interstitial edema Assessment/Plan Assessment/Plan 1. Acute and chronic systolic congestive heart failure 2. New onset atrial fibrillation with rapid ventricular rate 3. Heartburn 4. Noncompliance with medications. Recommendations 1. Continue Cardizem drip per air compressor mechanic 2. IV Lasix 3. We will give him Maalox and IV Protonix. 4. Continue monitoring electrolytes, magnesium and phosphate. 5. Suggest stroke prophylaxis per cardiology. Critical Care: Critically Ill Patient IRENA CHIU MD Aug 10, 2020 18:12
[2020-08-10] MEDS: APIXABAN 5 MG (ELIQUIS) TABLET PO SCH (19:53)
[2020-08-10] MEDS ORDERED: lisINopril 5 MG (PRINIVIL) TABLET PO NR (21:00)
[2020-08-10] MEDS ORDERED: SPIRONOLACTONE 25 MG (ALDACTONE) TAB PO NR (21:00)
[2020-08-11 03:52] LABS: BASOPHILS % (AUTO) 0 % (0-10); EOSINOPHILS # (AUTO) 0.2 10^3/uL (0.0-0.3); EOSINOPHILS % (AUTO) 2 % (0-10); HEMATOCRIT 42 % (40-54); HEMOGLOBIN 14.2 g/dL (13.3-17.7); LYMPHOCYTES # (AUTO) 1.8 10^3/uL (1.0-4.0); LYMPHOCYTES % (AUTO) 18 % (12-44); MEAN CORPUSCULAR HEMOGLOBIN 29 pg (25-34); MEAN CORPUSCULAR HGB CONC 34 g/dL (32-36); MEAN CORPUSCULAR VOLUME 86 fL (80-99); MEAN PLATELET VOLUME 11.3 fL (9.0-12.2); MONOCYTES # (AUTO) 0.9 10^3/uL (0.0-1.0); MONOCYTES % (AUTO) 9 % (0-12); NEUTROPHILS % (AUTO) 71 % (42-75); PLATELET COUNT 249 10^3/uL (130-400); WHITE BLOOD COUNT 9.9 10^3/uL (4.3-11.0)
[2020-08-11 04:04] LABS: CHLORIDE 102 MMOL/L (98-107); POTASSIUM 3.9 MMOL/L (3.6-5.0); SODIUM 137 MMOL/L (135-145)
[2020-08-11 04:05] LABS: CALCIUM 8.4 MG/DL (8.5-10.1)
[2020-08-11 04:06] LABS: GLUCOSE 115 MG/DL (70-105); TRIGLYCERIDES 94 MG/DL (<150); VLDL CHOLESTEROL 19 MG/DL (5-40)
[2020-08-11 04:08] LABS: CARBON DIOXIDE 21 MMOL/L (21-32)
[2020-08-11 04:10] LABS: CREATININE SERUM 1.05 MG/DL (0.60-1.30); GFR ESTIMATED > 60; PHOSPHORUS 3.6 MG/DL (2.3-4.7)
[2020-08-11 04:11] LABS: BUN/CREATININE RATIO 22; CHOLESTEROL 139 MG/DL (< 200)
[2020-08-11 04:12] LABS: HDL CHOLESTEROL 30 MG/DL (40-60)
[2020-08-11 04:13] LABS: MAGNESIUM 2.1 MG/DL (1.6-2.4)
[2020-08-11] MEDS: KCL 20 MEQ TAB (K-DUR) PO SCH (05:58)
[2020-08-11] MEDS: CATHETER FLUSH 10 ML SYR IV SCH ×3 (06:11→22:00)
[2020-08-11] MEDS: RT-ALBUTEROL/IPRATROPIUM 3 ML (DUONEB) VIAL INH SCH ×4 (06:36→18:35)
[2020-08-11] MEDS: APIXABAN 5 MG (ELIQUIS) TABLET PO SCH ×2 (08:48→20:20)
[2020-08-11] MEDS: PANTOPRAZOLE 40 MG (PROTONIX) VIAL IV SCH (08:48)
[2020-08-11] MEDS: lisINopril 5 MG (PRINIVIL) TABLET PO SCH ×2 (08:49→09:48)
[2020-08-11] MEDS: FUROSEMIDE 40 MG/4 ML INJ (LASIX) IVP SCH (08:49)
[2020-08-11] MEDS: SPIRONOLACTONE 25 MG (ALDACTONE) TAB PO SCH (08:49)
[2020-08-11] MEDS ORDERED: NS IV 500 ML 500 ML ONE (10:14)
[2020-08-11] MEDS: NS IV 500 ML 500 ML IV SCH (10:26)
--- NOTE | 2020-08-11 11:06 | History & Physical-Hospitalist ---
History of Present Illness HPI/Chief Complaint to ER with general malaise for about 1 week. Has been short of breath for 3 days. History of CHF and was formerly on Lasix but has not followed with Dr. Cason in over a year. He quit all of his medications over 6 months ago so he has been without medications for 6 months. Last echocardiogram from February 2017 shows a dilated cardiomyopathy with ejection fraction of 10 to 15%. He has a history of obstructive sleep apnea and does not use his CPAP. His CT from 2018 showed some enlarged paratracheal lymph nodes which might have been technical support representative of a lymphoma he is not followed up on that either. Upon my arrival patient reports he is feeling better less shortness of breath. He stated that his heart rate a bit little bit faster than usual and irregular over the past week prior to admission but became more short of breath and felt like he was filling up with fluid again with heart rates increasing into the 150 range that he was monitoring on his home O2 sat probe. Reports that his oxygen levels were never below the mid 90 range. He has not been aware of ever having been told he was in atrial fibrillation in the past.He has not been aware of any night sweats chills fever change in weight Date Seen 08/11/20 Time Seen by a Provider: 09:30 Attending Physician Luc Landry MD [facility] Referring Physician Date of Admission Aug 10, 2020 at 12:06 Home Medications & Allergies Home Medications Reviewed patient Home Medication Reconciliation performed by pharmacy medication reconciliations photographic reproduction technician and/or nursing. Patients Allergies have been reviewed. Allergies Allergies Coded Allergies No Known Drug Allergies (Unverified04/18/14) Past Totmdks-Ybmtyj-Qvgpex Hx Patient Social History Smoking Status: Never a Smoker Immunizations Up To Date Date of Influenza Vaccine: Apr 18, 2014 Tetanus Booster (TDap): Unknown PED Vaccines UTD: No Date of Pneumonia Vaccine: Apr 18, 2014 Seasonal Allergies Seasonal Allergies: No Current Status Advance Directives: No Communicates: Verbally Primary Language: Ukrainian Preferred Spoken Language: Ukrainian Is interpretation needed?: No Implanted or Applied Medical D: None Past Medical History Sleep Apnea Currently Using CPAP: Yes Sexually Transmitted Disease: No HIV/AIDS: No Gastroesophageal Reflux Loss of Vision: Denies Blood Disorders: No Adverse Reaction/Blood Tranf: No ANISA CHF Family Medical History Diabetes mellitus 19 MOTHER Hypertension 19 FATHER Diabetes, Hypertension Review of Systems Constitutional: see HPI Physical Exam Physical Exam Vital Signs Vital Signs - First Documented 08/10/20 08/10/20 08/10/20 09:47 12:18 14:12 Temp 37.0 Pulse 156 Resp 22 B/P (MAP) 158/138 (145) Pulse Ox 97 O2 Delivery Room Air O2 Flow Rate 35.00 FiO2 21 Capillary Refill : Less Than 3 Seconds Height, Weight, BMI Height: 5'10.00" Weight: 273lbs. 0.0oz. 123.790743qq; 38.81 BMI Method:Stated General Appearance: No Apparent Distress, Obese Respiratory: Chest Non Tender, Lungs Clear, Normal Breath Sounds, No Accessory Muscle Use, No Respiratory Distress Cardiovascular: No Murmur, Irregularly Irregular Gastrointestinal: Normal Bowel Sounds, No Organomegaly, No Pulsatile Mass, Non Tender, Soft Extremity: Normal Capillary Refill, Normal Inspection, Normal Range of Motion, Non Tender, No Calf Tenderness, No Pedal Edema Results Results/Procedures Labs Laboratory Tests 08/10/20 10:10 08/11/20 03:18 Patient resulted labs reviewed. Assessment/Plan Admission Diagnosis 1. Atrial fibrillation with rapid ventricular response under improved control on Cardizem likely switch to oral medication defer to Dr. Cason. 2. Acute on chronic systolic heart failure aggravated by untreated obstructive sleep apnea and atrial fibrillation ischemic etiology less likely defer to Dr. Cason continue diuretic therapy. 3. Untreated obstructive sleep apnea secondary to patient noncompliance heart failure also aggravated by longstanding noncompliance. Patient states he will after discussion resume using his CPAP machine. Admission Status: Inpatient Order (span 2 midnights) Reason for Inpatient Admission: See admission diagnosis LUC LANDRY MD Aug 11, 2020 11:06
[2020-08-11] MEDS: dilTIAZem DRIP PRE-MIX 125 ML IV SCH (14:17)
[2020-08-11] MEDS: DIGOXIN 0.25 MG (LANOXIN) TAB PO SCH (16:03)
--- NOTE | 2020-08-11 16:43 | Progress Note - Cardiology ---
Cardiology SOAP Progress Note Subjective: Persistent shortness of breath No cp or palp or syncope No n/v/d Some anxiety No swelling Gen malaise and weakness Objective: I&O/Vital Signs 08/11/20 08/11/20 08/11/20 08/11/20 05:00 06:00 06:00 06:36 Pulse 96 80 81 Resp B/P (MAP) 105/68 (80) 108/84 (92) 108/84 (92) Pulse Ox 97 86 94 98 O2 Delivery Room Air Room Air Room Air Room Air 08/11/20 08/11/20 08/11/20 08/11/20 07:00 07:00 07:51 08:00 Temp 36.0 Pulse 91 97 Resp 26 B/P (MAP) 120/94 (103) Pulse Ox 97 O2 Delivery Room Air Room Air 08/11/20 08/11/20 08/11/20 08/11/20 08:00 09:00 10:00 10:52 Pulse 116 121 101 Resp 20 29 26 B/P (MAP) 114/94 (101) 129/95 (106) Pulse Ox 97 97 97 98 O2 Delivery Room Air Room Air Room Air Room Air 08/11/20 08/11/20 08/11/20 08/11/20 11:00 12:00 12:00 12:15 Temp 36.4 Pulse 101 106 Resp 11 16 B/P (MAP) 93/75 (81) 105/60 (75) Pulse Ox 98 96 O2 Delivery Room Air Room Air Room Air 08/11/20 08/11/20 08/11/20 08/11/20 12:56 13:00 14:00 14:28 Pulse 117 83 96 Resp 15 27 B/P (MAP) 103/92 (96) 105/81 (89) Pulse Ox 96 99 97 O2 Delivery Room Air Room Air Room Air 08/11/20 08/11/20 15:00 16:00 Pulse 84 115 Resp 31 26 B/P (MAP) 107/50 (69) 111/90 (97) Pulse Ox 98 99 O2 Delivery Room Air Room Air 08/11/20 00:00 Intake Total 2000 ml Output Total 1250 ml Balance 750 ml Weight (Pounds): 273 Weight (Ounces): 0.0 Weight (Calculated Kilograms): 123.752622 Constitutional: AAO x 3, well-developed, well-nourished Respiratory: No accessory muscle use, No respiratory distress; chest expansion is symmetric, chest is bilaterally symmetric, other (diminished lower lobes bilat) Cardiovascular: irregularly irregular; No JVD; S1 and S2 Gastrointestional: No tender; soft, round, audible bowel sounds Extremities: no lower extremity edema bilateral Neurologic/Psychiatric: oriented x 3, other (moves all limbs equally) Skin: No rash on exposed areas, No ulcerations on exposed areas Results/Procedures: Labs Laboratory Tests 08/11/20 03:18: White Blood Count 9.9, Red Blood Count 4.95, Hemoglobin 14.2, Hematocrit 42, Mean Corpuscular Volume 86, Mean Corpuscular Hemoglobin 29, Mean Corpuscular Hemoglobin Concent 34, Red Cell Distribution Width 13.8, Platelet Count 249, Mean Platelet Volume 11.3, Immature Granulocyte % (Auto) 0, Neutrophils (%) (Auto) 71, Lymphocytes (%) (Auto) 18, Monocytes (%) (Auto) 9, Eosinophils (%) (Auto) 2, Basophils (%) (Auto) 0, Neutrophils # (Auto) 7.0, Lymphocytes # (Auto) 1.8, Monocytes # (Auto) 0.9, Eosinophils # (Auto) 0.2, Basophils # (Auto) 0.0, Immature Granulocyte # (Auto) 0.0, Sodium Level 137, Potassium Level 3.9, Chloride Level 102, Carbon Dioxide Level 21, Anion Gap 14, Blood Urea Nitrogen 23H, Creatinine 1.05, Estimat Glomerular Filtration Rate > 60, BUN/Creatinine Ratio 22, Glucose Level 115H, Calcium Level 8.4L, Phosphorus Level 3.6, Magnesium Level 2.1, Triglycerides Level 94, Cholesterol Level 139, LDL Cholesterol Direct 109, VLDL Cholesterol 19, HDL Cholesterol 30L Laboratory Tests 08/10/20 10:10 08/11/20 03:18 A/P: Assessment: New onset a-fib/flutter with RVR, probably related to untreated (due to noncompl iance) ANISA Acute on chronic systolic CHF d/t decompensated CHF d/t dilated cardiomyopathy d/t non-compliance with medications of treatment of ANISA Mild troponin elevation likely secondary to acute decompensated CHF and/or a- fib/flutter with RVR Non ischemic dilated cardiomyopathy. - Cardiomyopathy first diagnosed in April 2014 and improved with treatment to LVEF of 45-50% on echo eval of May 2015; then had recurrence due to noncompliance. - Echo of 02/24/17 shows marked cardiomegaly and LVEF 10 to 15%. Most recent echo of Dec 2018 showed LVEF improved to 50-55% with mild to mod regurg, RVSP [address] angio of the chest on 02/26/17 shows mediastinal lymphadenopathy: lymphoma is a concern. This is being followed by Dr Connolly (his deck and hull assembler) and Dr Brittanie Luna (his pcp) ANISA for which he is on Bi-pap tx (followed by his deck and hull assembler) Abnormally enlarged paratracheal lymph nodes measuring up to maximally 2.3 cm in short axis with multiple subcentimeter short axis AP window lymph nodes. Metastatic disease and lymphoma would be in the differential diagnosis for these abnormally enlarged lymph nodes. Per CTA of 02-26-17. Managed by his pcp No significant coronary artery disease (angiographically normal coronary arteries with a right dominant system) per cardiac cath of 04-18-2014 Obesity, BMI of approx 41 Quit smoking in 2011 Erectile dysfunction Plan: Change to oral dig and oral dilt Continue apixaban for stroke prophylaxis Increase ambulation Discussed the importance of compliance with medications and Bi-pap Echo Monitor lab closely MICHAEL CADENA MD FACP [facility] CCDS Aug 11, 2020 16:43
[2020-08-12] MEDS: NS IV 500 ML 500 ML IV SCH (03:11)
[2020-08-12] MEDS: CATHETER FLUSH 10 ML SYR IV SCH ×3 (06:10→20:34)
[2020-08-12] MEDS: RT-ALBUTEROL/IPRATROPIUM 3 ML (DUONEB) VIAL INH SCH ×3 (06:49→18:36)
[2020-08-12] MEDS: KCL 20 MEQ TAB (K-DUR) PO SCH (07:52)
[2020-08-12] MEDS: PANTOPRAZOLE 40 MG (PROTONIX) VIAL IV SCH (07:52)
[2020-08-12] MEDS: lisINopril 5 MG (PRINIVIL) TABLET PO SCH (07:53)
[2020-08-12] MEDS: SPIRONOLACTONE 25 MG (ALDACTONE) TAB PO SCH (07:53)
[2020-08-12] MEDS: APIXABAN 5 MG (ELIQUIS) TABLET PO SCH ×2 (07:53→20:33)
[2020-08-12] MEDS: FUROSEMIDE 40 MG/4 ML INJ (LASIX) IVP SCH (07:53)
[2020-08-12] MEDS: DIGOXIN 0.25 MG (LANOXIN) TAB PO SCH (07:53)
--- NOTE | 2020-08-12 09:33 | Pulmonary Progress Note ---
Subjective Date Seen by a Provider: Aug 12, 2020 Time Seen by a Provider: 09:30 Subjective/Events-last exam Rounded virtually with CLOVER Ye. Patient stable overnight with controlled afib. Very non compliant. Rumored to have an EF of 10% but RN has not confirmed yet. No AICD. VSS with SBP 91-95 mm Hg. On PO cardizem and also recd. 80 mg IV lasix. On room air. Today's plan is to transfer to floor after repeat ECHO. Review of Systems See freetext note Sepsis Event Evaluation Sepsis Stage: Ruled Out Possible Source: Other Height, Weight, BMI Height: 5'10.00" Weight: 273lbs. 0.0oz. 123.465263ci; 38.81 BMI Method:Stated Bedside Monitoring Time bedside monitoring occure: 09:20 CVP Measures: 8-12 ScvO2 measures: Greater than 70% Bedside Ultrasound Performed: No Passive Leg Raise/Fluid Bolus: Fluid Responsive Focused Exam Lactate Level 08/10/20 10:10: Lactic Acid Level 1.76 Respiratory: Lungs Clear Cardiovascular: No Edema Peripheral Pulses: 2+ Dorsalis Pedis (R), 2+ Left Dors-Pedis (L) Skin: normal color Lactic Acid Level See freetext note Exam Exam Patient acknowledged, consented, and participated in this virtual visit which was conducted using real time audio/video Vital Signs Date Time Temp Pulse Resp B/P (MAP) Pulse Ox O2 Delivery O2 Flow Rate FiO2 08/12/20 08:00 112 11 91/79 (83) 97 Room Air 08/12/20 08:00 Room Air 08/12/20 07:31 36.5 08/12/20 07:00 85 08/12/20 07:00 84 20 105/81 (89) 96 Room Air 08/12/20 06:49 Room Air 08/12/20 06:00 89 19 113/101 (105) 99 Room Air 08/12/20 05:00 65 25 85/69 (74) 92 Room Air 08/12/20 04:18 Room Air 08/12/20 04:17 36.6 Room Air 08/12/20 04:00 80 14 97/66 (76) 98 NIV Bilevel 21.00 08/12/20 03:00 98 35 83/62 (69) 95 NIV Bilevel 21.00 08/12/20 02:00 93 25 115/103 (107) 99 NIV Bilevel 21.00 08/12/20 01:00 110 08/12/20 01:00 88 18 143/125 (131) 99 NIV Bilevel 21.00 08/12/20 00:00 87 22 94/81 (85) 99 NIV Bilevel 21.00 08/12/20 00:00 Room Air 08/11/20 23:33 36.3 NIV Bilevel 21.00 08/11/20 23:00 103 118/90 (99) 98 Room Air 08/11/20 22:12 Room Air 08/11/20 22:00 67 116/66 (83) 97 NIV Bilevel 21.00 08/11/20 21:17 NIV Bilevel 21.00 08/11/20 21:00 107 16 100/78 (85) 97 Room Air 08/11/20 20:00 120 93/82 (86) 97 Room Air 08/11/20 19:45 Room Air 08/11/20 19:19 36.6 08/11/20 19:00 117/106 (110) 08/11/20 19:00 110 08/11/20 18:35 98 Room Air 08/11/20 18:00 110 94/87 (89) 99 Room Air 08/11/20 17:00 76 90/49 (63) 93 Room Air 08/11/20 16:00 115 26 111/90 (97) 99 Room Air 08/11/20 16:00 Room Air 08/11/20 15:00 84 31 107/50 (69) 98 Room Air 08/11/20 14:28 97 Room Air 08/11/20 14:00 96 27 105/81 (89) 99 Room Air 08/11/20 13:00 83 15 103/92 (96) 96 Room Air 08/11/20 12:56 117 08/11/20 12:15 36.4 08/11/20 12:00 106 16 105/60 (75) 96 Room Air 08/11/20 12:00 Room Air 08/11/20 11:00 101 11 93/75 (81) 98 Room Air 08/11/20 10:52 98 Room Air 08/11/20 10:00 101 26 97 Room Air I & O 08/12/20 07:00 Intake Total 3420 ml Output Total 3300 ml Balance 120 ml Height & Weight Height: 5'10.00" Weight: 273lbs. 0.0oz. 123.909846ui; 38.81 BMI Method:Stated General Appearance: No Apparent Distress, Obese Respiratory: Chest Non Tender, Lungs Clear, Normal Breath Sounds, No Accessory Muscle Use, No Respiratory Distress Cardiovascular: No Murmur, Irregularly Irregular Capillary Refill: Less Than 3 Seconds Gastrointestinal: normal bowel sounds, non tender, soft Extremity: Normal Capillary Refill, Normal Inspection, Normal Range of Motion, Non Tender, No Calf Tenderness, No Pedal Edema Other comments See freetext note Results Lab Laboratory Tests 08/10/20 10:10 08/11/20 03:18 See freetext note Meds See freetext note Radiology See freetext note Procedures See freetext note Assessment/Plan Assessment/Plan See freetext note Critical Care: Critically Ill Patient Time spent with patient (mins): 10 Advance Care discuss with: patient Time spent on discussion(mins): 10 THOMAS HERNANDEZ MD Aug 12, 2020 09:33
--- NOTE | 2020-08-12 12:58 | Progress Note - Hospitalist ---
Subjective HPI/CC On Admission Date Seen by Provider: Aug 12, 2020 Time Seen by Provider: 07:15 to ER with general malaise for about 1 week. Has been short of breath for 3 days. History of CHF and was formerly on Lasix but has not followed with Dr. Cason in over a year. He quit all of his medications over 6 months ago so he has been without medications for 6 months. Last echocardiogram from February 2017 shows a dilated cardiomyopathy with ejection fraction of 10 to 15%. He has a history of obstructive sleep apnea and does not use his CPAP. His CT from 2018 showed some enlarged paratracheal lymph nodes which might have been branch customer service representative of a lymphoma he is not followed up on that either. Upon my arrival patient reports he is feeling better less shortness of breath. He stated that his heart rate a bit little bit faster than usual and irregular over the past week prior to admission but became more short of breath and felt like he was filling up with fluid again with heart rates increasing into the 150 range that he was monitoring on his home O2 sat probe. Reports that his oxygen levels were never below the mid 90 range. He has not been aware of ever having been told he was in atrial fibrillation in the past.He has not been aware of any night sweats chills fever change in weight Subjective/Events-last exam Patient reports feeling better less short of breath but activity thus far has been limited. He denies chest pain or heart racing sensation. Focused Exam Lactate Level 08/10/20 10:10: Lactic Acid Level 1.76 Objective Exam Vital Signs Vital Signs Date Time Temp Pulse Resp B/P (MAP) Pulse Ox O2 Delivery O2 Flow Rate FiO2 08/12/20 12:00 109 33 130/93 (105) 95 Room Air 08/12/20 11:21 36.2 08/12/20 04:00 21.00 08/10/20 14:12 21 Capillary Refill : Less Than 3 Seconds General Appearance: No Apparent Distress Respiratory: Chest Non Tender, Lungs Clear, Normal Breath Sounds, No Accessory Muscle Use, No Respiratory Distress Cardiovascular: Irregularly Irregular, Other (Resting heart rate now in the 90 to 110 bpm range improved) Extremity: Normal Capillary Refill, Normal Inspection, Non Tender, No Calf Tenderness, No Pedal Edema Results/Procedures Lab Patient resulted labs reviewed. Assessment/Plan Assessment and Plan Assess & Plan/Chief Complaint 1. Atrial fibrillation with rapid ventricular response under improved control onOral Cardizem now and digoxin will continue per Dr. Cason. The patient would like to go home but his activity level has been minimal thus far and staff have understandable concerns. Patient will need to demonstrate the ability to ambulate independently before I would recommend discharge. 2. Acute on chronic systolic heart failure aggravated by untreated obstructive sleep apnea and atrial fibrillation ischemic etiology less likely defer to Dr. Cason continue diuretic therapy. 3. Untreated obstructive sleep apnea secondary to patient noncompliance heart failure also aggravated by longstanding noncompliance. Patient states he will after discussion resume using his CPAP machine Critical Care Critically Ill Patient LUC LANDRY MD Aug 12, 2020 12:58
--- NOTE | 2020-08-12 15:00 | Progress Note - Cardiology ---
Cardiology SOAP Progress Note Subjective: Still short of breath with minimal activity No cp or palp or syncope Gen malaise and weakness present No n/v/d Objective: I&O/Vital Signs 08/12/20 08/12/20 08/12/20 08/12/20 03:00 04:00 04:17 04:18 Temp 36.6 Pulse 98 80 Resp 35 14 B/P (MAP) 83/62 (69) 97/66 (76) Pulse Ox 95 98 O2 Delivery NIV Bilevel NIV Bilevel Room Air Room Air O2 Flow Rate 21.00 21.00 08/12/20 08/12/20 08/12/20 08/12/20 05:00 06:00 06:49 07:00 Pulse 65 89 84 Resp 25 19 20 B/P (MAP) 85/69 (74) 113/101 (105) 105/81 (89) Pulse Ox 92 99 96 O2 Delivery Room Air Room Air Room Air Room Air 08/12/20 08/12/20 08/12/20 08/12/20 07:00 07:31 08:00 08:00 Temp 36.5 Pulse 85 112 Resp 11 B/P (MAP) 91/79 (83) Pulse Ox 97 O2 Delivery Room Air Room Air 08/12/20 08/12/20 08/12/20 08/12/20 09:00 10:00 10:54 11:00 Pulse 105 100 86 Resp 22 37 33 B/P (MAP) 100/80 (87) 129/108 (115) Pulse Ox 95 93 98 97 O2 Delivery Room Air Room Air Room Air Room Air 08/12/20 08/12/20 08/12/20 08/12/20 11:21 12:00 13:00 14:00 Temp 36.2 Pulse 109 77 82 Resp 33 16 22 B/P (MAP) 130/93 (105) 93/76 (82) 100/86 (91) Pulse Ox 95 97 95 O2 Delivery Room Air Room Air Room Air 08/12/20 00:00 Intake Total 1700 ml Output Total 1575 ml Balance 125 ml Weight (Pounds): 273 Weight (Ounces): 0.0 Weight (Calculated Kilograms): 123.192179 Constitutional: AAO x 3, well-developed, well-nourished Respiratory: No accessory muscle use, No respiratory distress; chest expansion is symmetric, chest is bilaterally symmetric, other (diminished lower lobes bilat) Cardiovascular: irregularly irregular; No JVD; S1 and S2 Gastrointestional: No tender; soft, round, audible bowel sounds Extremities: no lower extremity edema bilateral Neurologic/Psychiatric: oriented x 3, other (moves all limbs equally) Skin: No rash on exposed areas, No ulcerations on exposed areas Results/Procedures: Labs Microbiology 08/10/20 Urine Culture - Final, Complete NO GROWTH 08/10/20 Blood Culture - Preliminary, Resulted No growth Laboratory Tests 08/11/20 03:18 A/P: Assessment: New onset a-fib/flutter with RVR, probably related to untreated (due to noncompliance) ANISA Acute on chronic systolic CHF d/t decompensated CHF d/t dilated cardiomyopathy d/t non-compliance with medications of treatment of ANISA Mild troponin elevation likely secondary to acute decompensated CHF and/or a- fib/flutter with RVR Non ischemic dilated cardiomyopathy. - Cardiomyopathy first diagnosed in April 2014 and improved with treatment to LVEF of 45-50% on echo eval of May 2015; then had recurrence due to noncompliance. - Echo of 02/24/17 shows marked cardiomegaly and LVEF 10 to 15%. Most recent echo of Dec 2018 showed LVEF improved to 50-55% with mild to mod regurg, RVSP 35 mmHg - Echo of 08/12/20: LVEF 30-35%, diffuse hypokinesis, grade 3 skaggs dysfunction, biatrial and right heart enlargement, mod MR, mod TR, PASP 45-[address] angio of the chest on 02/26/17 shows mediastinal lymphadenopathy: lymphoma is a concern. This is being followed by his yard motor operator and his pcp Dr Brittanie LANGE for which he is on Bi-pap tx (followed by his yard motor operator) Abnormally enlarged paratracheal lymph nodes measuring up to maximally 2.3 cm in short axis with multiple subcentimeter short axis AP window lymph nodes. Metastatic disease and lymphoma would be in the differential diagnosis for these abnormally enlarged lymph nodes. Per CTA of 02-26-17. Managed by his pcp No significant coronary artery disease (angiographically normal coronary arteries with a right dominant system) per cardiac cath of 04-18-2014 Obesity, BMI of approx 41 Quit smoking in 2011 Erectile dysfunction Plan: Complex management Transfer to floor with tele LifeVest prior to discharge Change to oral dig and oral dilt Continue apixaban for stroke prophylaxis Increase ambulation Discussed the importance of compliance with medications and Bi-pap Monitor lab closely MICHAEL CADENA MD FACP FAC CCDS Aug 12, 2020 15:00
[2020-08-13 05:27] LABS: BASOPHILS % (AUTO) 0 % (0-10); EOSINOPHILS # (AUTO) 0.2 10^3/uL (0.0-0.3); EOSINOPHILS % (AUTO) 3 % (0-10); HEMATOCRIT 40 % (40-54); HEMOGLOBIN 13.2 g/dL (13.3-17.7); LYMPHOCYTES # (AUTO) 1.5 10^3/uL (1.0-4.0); LYMPHOCYTES % (AUTO) 20 % (12-44); MEAN CORPUSCULAR HEMOGLOBIN 28 pg (25-34); MEAN CORPUSCULAR HGB CONC 33 g/dL (32-36); MEAN CORPUSCULAR VOLUME 86 fL (80-99); MEAN PLATELET VOLUME 10.7 fL (9.0-12.2); MONOCYTES # (AUTO) 0.8 10^3/uL (0.0-1.0); MONOCYTES % (AUTO) 10 % (0-12); NEUTROPHILS # (AUTO) 5.2 10^3/uL (1.8-7.8); NEUTROPHILS % (AUTO) 67 % (42-75); PLATELET COUNT 236 10^3/uL (130-400); WHITE BLOOD COUNT 7.7 10^3/uL (4.3-11.0)
[2020-08-13] MEDS: KCL 20 MEQ TAB (K-DUR) PO SCH (05:37)
[2020-08-13] MEDS: CATHETER FLUSH 10 ML SYR IV SCH ×3 (05:37→19:33)
[2020-08-13 05:41] LABS: ALBUMIN 3.3 GM/DL (3.2-4.5); CHLORIDE 103 MMOL/L (98-107); POTASSIUM 3.8 MMOL/L (3.6-5.0); SODIUM 136 MMOL/L (135-145)
[2020-08-13 05:42] LABS: CALCIUM 8.1 MG/DL (8.5-10.1)
[2020-08-13 05:43] LABS: GLUCOSE 100 MG/DL (70-105)
[2020-08-13 05:44] LABS: CARBON DIOXIDE 23 MMOL/L (21-32)
[2020-08-13 05:47] LABS: ALKALINE PHOSPHATASE 62 U/L (40-136); CREATININE SERUM 0.92 MG/DL (0.60-1.30); GFR ESTIMATED > 60
[2020-08-13 05:48] LABS: BUN/CREATININE RATIO 21
[2020-08-13 05:50] LABS: ALANINE AMINOTRANSFERASE 32 U/L (0-55)
--- NOTE | 2020-08-13 06:34 | Progress Note - Hospitalist ---
Subjective HPI/CC On Admission Date Seen by Provider: Aug 13, 2020 Time Seen by Provider: 10:00 to ER with general malaise for about 1 week. Has been short of breath for 3 days. History of CHF and was formerly on Lasix but has not followed with Dr. Cason in over a year. He quit all of his medications over 6 months ago so he has been without medications for 6 months. Last echocardiogram from February 2017 shows a dilated cardiomyopathy with ejection fraction of 10 to 15%. He has a history of obstructive sleep apnea and does not use his CPAP. His CT from 2018 showed some enlarged paratracheal lymph nodes which might have been apprenticeship training representative of a lymphoma he is not followed up on that either. Upon my arrival patient reports he is feeling better less shortness of breath. He stated that his heart rate a bit little bit faster than usual and irregular over the past week prior to admission but became more short of breath and felt like he was filling up with fluid again with heart rates increasing into the 150 range that he was monitoring on his home O2 sat probe. Reports that his oxygen levels were never below the mid 90 range. He has not been aware of ever having been told he was in atrial fibrillation in the past.He has not been aware of any night sweats chills fever change in weight Subjective/Events-last exam Patient sent for discharge LifeVest pending Hospital Course: Pt had an uneventful hospital course. He was admitted for atrial flutter with rapid ventricular response and congestive heart failure. He was found to have a decreased systolic function that required a life vest. C ardiology managed the atrial flutter. Multiple medications were changed and he was deemed stable for discharge with a life vest with close follow up with cardiology. Review of Systems General: Fatigue, Malaise Pulmonary: Dyspnea Focused Exam Lactate Level Objective Exam Vital Signs Vital Signs Date Time Temp Pulse Resp B/P (MAP) Pulse Ox O2 Delivery O2 Flow Rate FiO2 08/14/20 04:28 36.0 54 20 113/76 (88) 99 Room Air 08/13/20 06:43 21 08/12/20 04:00 21.00 Capillary Refill : Less Than 3 Seconds General Appearance: No Apparent Distress, WD/WN, Chronically ill, Obese Respiratory: Lungs Clear Cardiovascular: Regular Rate, Rhythm Neurologic/Psychiatric: Alert, Oriented x3 Results/Procedures Lab Laboratory Tests 08/14/20 04:44 Patient resulted labs reviewed. Assessment/Plan Assessment and Plan Assess & Plan/Chief Complaint Assessment: Atrial flutter with rapid ventricular response Congestive heart failure ejection fraction 10% awaiting LifeVest Plan: LifeVest Discharge home Critical Care Critically Ill Patient EDGAR CHOPRA DO Aug 13, 2020 06:34
[2020-08-13] MEDS: RT-ALBUTEROL/IPRATROPIUM 3 ML (DUONEB) VIAL INH SCH (06:41)
[2020-08-13 06:43] VITALS: BP 115/84
[2020-08-13] MEDS ORDERED: RT-ALBUTEROL/IPRATROPIUM 3 ML (DUONEB) VIAL INH PRN (06:45)
[2020-08-13] MEDS: lisINopril 5 MG (PRINIVIL) TABLET PO SCH (08:28)
[2020-08-13] MEDS: APIXABAN 5 MG (ELIQUIS) TABLET PO SCH ×2 (08:28→19:32)
[2020-08-13] MEDS: DIGOXIN 0.25 MG (LANOXIN) TAB PO SCH (08:29)
[2020-08-13] MEDS: SPIRONOLACTONE 25 MG (ALDACTONE) TAB PO SCH (08:29)
[2020-08-13] MEDS: FUROSEMIDE 40 MG/4 ML INJ (LASIX) IVP SCH (08:29)
[2020-08-13] MEDS: PANTOPRAZOLE 40 MG (PROTONIX) VIAL IV SCH (09:02)
[2020-08-13] MEDS ORDERED: PANT40TA2 PO (10:59)
[2020-08-13] MEDS ORDERED: DILT180C85 PO (10:59)
[2020-08-13] MEDS ORDERED: CARV3.122 PO (10:59)
[2020-08-13] MEDS ORDERED: APIX5TAB PO (10:59)
--- NOTE | 2020-08-13 11:00 | Discharge Summary ---
Discharge Summary Hospital Course Hospital Course Date of Admission: Aug 10, 2020 at 12:06 Admission Diagnosis : Family Physician/Provider: Kendy Abad Aprn Date of Discharge: 08/13/20 Discharge Diagnosis: [ ] Hospital Course: [ ] Labs and Pending Lab Test: Laboratory Tests 08/13/20 05:18: White Blood Count 7.7, Red Blood Count 4.66, Hemoglobin 13.2L, Hematocrit 40, Mean Corpuscular Volume 86, Mean Corpuscular Hemoglobin 28, Mean Corpuscular Hemoglobin Concent 33, Red Cell Distribution Width 14.0, Platelet Count 236, Mean Platelet Volume 10.7, Immature Granulocyte % (Auto) 0, Neutrophils (%) (Auto) 67, Lymphocytes (%) (Auto) 20, Monocytes (%) (Auto) 10, Eosinophils (%) (Auto) 3, Basophils (%) (Auto) 0, Neutrophils # (Auto) 5.2, Lymphocytes # (Auto) 1.5, Monocytes # (Auto) 0.8, Eosinophils # (Auto) 0.2, Basophils # (Auto) 0.0, Immature Granulocyte # (Auto) 0.0, Sodium Level 136, Potassium Level 3.8, Chloride Level 103, Carbon Dioxide Level 23, Anion Gap 10, Blood Urea Nitrogen 19H, Creatinine 0.92, Estimat Glomerular Filtration Rate > 60, BUN/Creatinine Ratio 21, Glucose Level 100, Calcium Level 8.1L, Corrected Calcium 8.7, Total Bilirubin 1.0, Aspartate Amino Transf (AST/SGOT) 18, Alanine Aminotransferase (ALT/SGPT) 32, Alkaline Phosphatase 62, Total Protein 6.0L, Albumin 3.3 Microbiology 08/10/20 Urine Culture - Final, Complete NO GROWTH 08/10/20 Blood Culture - Preliminary, Resulted No growth Home Meds Active Protonix (Pantoprazole Sodium) 40 Mg Tablet.dr 40 Mg PO DAILY Diltiazem 24Hr ER (Diltiazem HCl) 180 Mg Cap.er.24h 180 Mg PO DAILY Carvedilol 3.125 Mg Tablet 3.125 Mg PO BID Eliquis (Apixaban) 5 Mg Tablet 5 Mg PO BID Potassium Chloride 20 Meq Tablet.er 20 Meq PO DAILY Metolazone 2.5 Mg Tablet 2.5 Mg PO DAILY Lasix (Furosemide) 80 Mg Tablet 80 Mg PO DAILY Aspirin EC (Aspirin) 81 Mg Tablet.dr 81 Mg PO DAILY Spironolactone 25 Mg Tablet 25 Mg PO DAILY Metoprolol Succinate 25 Mg Tab.er.24h 25 Mg PO DAILY Digox (Digoxin) 250 Mcg Tablet 0.25 Mg PO DAILY Reported Fish Oil 1,000 mg Capsule ([place] 3 Polyunsat Fatty Acids) 1,000 Mg Cap 1,000 Mg PO DAILY Coconut Oil 1,000 Mg Capsule 1,000 Mg PO DAILY Co Q-10 100 mg Softgel (Ubidecarenone/Vit E Acetate) 1 Each Capsule 1 Cap PO DAILY Lisinopril 5 Mg Tablet 5 Mg PO DAILY LAST FILLED #30 09-12-15 Magnesium Oxide 400 Mg Tablet 400 Mg PO DAILY LAST FILLED #30 02-28-16 Discharge Physical Examination Vital Signs Vital Signs Date Time Temp Pulse Resp B/P (MAP) Pulse Ox O2 Delivery O2 Flow Rate FiO2 08/13/20 08:00 36.5 101 18 128/85 (99) 96 Room Air 08/13/20 06:43 21 08/12/20 04:00 21.00 Allergies: Coded Allergies: No Known Drug Allergies (Unverified , 04/18/14) Discharge Summary Date of Admission Aug 10, 2020 at 12:06 Date of Discharge Discharge Date: Aug 13, 2020 Admission Diagnosis 1. Atrial fibrillation with rapid ventricular response under improved control on Cardizem likely switch to oral medication defer to Dr. Cason. 2. Acute on chronic systolic heart failure aggravated by untreated obstructive sleep apnea and atrial fibrillation ischemic etiology less likely defer to Dr. Cason continue diuretic therapy. 3. Untreated obstructive sleep apnea secondary to patient noncompliance heart failure also aggravated by longstanding noncompliance. Patient states he will after discussion resume using his CPAP machine. EDGAR CHOPRA DO Aug 13, 2020 11:00
--- NOTE | 2020-08-13 12:35 | Progress Note - Cardiology ---
Cardiology SOAP Progress Note Subjective: Shortness of breath and malaise are improving No cp or palp or syncope No n/v/d No focal weakness No swelling Objective: I&O/Vital Signs 08/13/20 08/13/20 08/13/20 08/13/20 01:00 04:27 06:41 06:43 Temp 36.2 36.2 Pulse 97 67 67 Resp 22 B/P (MAP) 115/84 (94) Pulse Ox 97 98 98 O2 Delivery Room Air Room Air FiO2 21 08/13/20 08/13/20 08/13/20 08/13/20 07:00 08:00 09:00 12:00 Temp 36.5 36.3 Pulse 115 101 60 Resp 18 22 B/P (MAP) 128/85 (99) 138/85 (102) Pulse Ox 96 96 96 O2 Delivery Room Air Room Air Room Air 08/12/20 23:59 Intake Total 1350 ml Output Total 575 ml Balance 775 ml Weight (Pounds): 273 Weight (Ounces): 0.0 Weight (Calculated Kilograms): 123.527670 Constitutional: AAO x 3, well-developed, well-nourished Respiratory: No accessory muscle use, No respiratory distress; chest expansion is symmetric, chest is bilaterally symmetric, other (diminished lower lobes bilat) Cardiovascular: irregularly irregular; No JVD; S1 and S2 Gastrointestional: No tender; soft, round, audible bowel sounds Extremities: no lower extremity edema bilateral Neurologic/Psychiatric: oriented x 3, other (moves all limbs equally) Skin: No rash on exposed areas, No ulcerations on exposed areas Results/Procedures: Labs Laboratory Tests 08/13/20 05:18: White Blood Count 7.7, Red Blood Count 4.66, Hemoglobin 13.2L, Hematocrit 40, Mean Corpuscular Volume 86, Mean Corpuscular Hemoglobin 28, Mean Corpuscular Hemoglobin Concent 33, Red Cell Distribution Width 14.0, Platelet Count 236, Mean Platelet Volume 10.7, Immature Granulocyte % (Auto) 0, Neutrophils (%) (Auto) 67, Lymphocytes (%) (Auto) 20, Monocytes (%) (Auto) 10, Eosinophils (%) (Auto) 3, Basophils (%) (Auto) 0, Neutrophils # (Auto) 5.2, Lymphocytes # (Auto) 1.5, Monocytes # (Auto) 0.8, Eosinophils # (Auto) 0.2, Basophils # (Auto) 0.0, Immature Granulocyte # (Auto) 0.0, Sodium Level 136, Potassium Level 3.8, Chloride Level 103, Carbon Dioxide Level 23, Anion Gap 10, Blood Urea Nitrogen 19H, Creatinine 0.92, Estimat Glomerular Filtration Rate > 60, BUN/Creatinine Ratio 21, Glucose Level 100, Calcium Level 8.1L, Corrected Calcium 8.7, Total Bilirubin 1.0, Aspartate Amino Transf (AST/SGOT) 18, Alanine Aminotransferase (ALT/SGPT) 32, Alkaline Phosphatase 62, Total Protein 6.0L, Albumin 3.3 Microbiology 08/10/20 Urine Culture - Final, Complete NO GROWTH 08/10/20 Blood Culture - Preliminary, Resulted No growth Laboratory Tests 08/13/20 05:18 A/P: Assessment: New onset a-fib/flutter with RVR, probably related to untreated (due to nonc ompliance) ANISA Acute on chronic systolic CHF d/t decompensated CHF d/t dilated cardiomyopathy d/t non-compliance with medications of treatment of ANISA Mild troponin elevation likely secondary to acute decompensated CHF and/or a- fib/flutter with RVR Non ischemic dilated cardiomyopathy. - Cardiomyopathy first diagnosed in April 2014 and improved with treatment to LVEF of 45-50% on echo eval of May 2015; then had recurrence due to noncompliance. - Echo of 02/24/17 shows marked cardiomegaly and LVEF 10 to 15%. Most recent echo of Dec 2018 showed LVEF improved to 50-55% with mild to mod regurg, RVSP 35 mmHg - Echo of 08/12/20: LVEF 30-35%, diffuse hypokinesis, grade 3 skaggs dysfunction, biatrial and right heart enlargement, mod MR, mod TR, PASP 45-[address] angio of the chest on 02/26/17 shows mediastinal lymphadenopathy: lymphoma is a concern. This is being followed by his computer science professor and his pcp Dr Brittanie LANGE for which he is on Bi-pap tx (followed by his computer science professor) Abnormally enlarged paratracheal lymph nodes measuring up to maximally 2.3 cm in short axis with multiple subcentimeter short axis AP window lymph nodes. Metastatic disease and lymphoma would be in the differential diagnosis for these abnormally enlarged lymph nodes. Per CTA of 02-26-17. Managed by his pcp No significant coronary artery disease (angiographically normal coronary arteries with a right dominant system) per cardiac cath of 04-18-2014 Obesity, BMI of approx 41 Quit smoking in 2011 Erectile dysfunction Plan: Complex management LifeVest prior to discharge Continue oral dig and oral dilt Continue apixaban for stroke prophylaxis Increase ambulation Discussed the importance of compliance with medications and Bi-pap Monitor lab closely MICHAEL CADENA MD FACP FAC CCDS Aug 13, 2020 12:35
--- NOTE | 2020-08-13 13:11 | Physician Query Clarification ---
PQ-Further Specificity Admission/Discharge Admission Date: Aug 10, 2020 at 12:06 Discharge Date: Dr. Macario, The medical record reflects the following clinical scenario: History/Risk Factors: atrial fib/flutter, a>c systolic CHF, dilated cardiomyopathy Clinical Findings: Troponin 0.049, Mild troponin elevation likely secondary to acute decompensated CHF and/or a-fib/flutter with RVR Treatment: IV Diltiazem, IV Digoxin, IV Lasix Question: Can you further specify Mild troponin elevation likely secondary to acute decompensated CHF and/or afib/flutter with RVR per the clinical indicators above? Please document a response in the Progress Notes or Discharge Summary. 1. Mild troponin elevation likely secondary to acute decompensated CHF and/or a- fib/flutter with RVR meaning elevated troponin d/t demand ischemia (PR 2) 2. Mild troponin elevation likely secondary to acute decompensated CHF and/or a- fib/flutter with RVR as stated no demand ischemia (M! 2) 3. Other, with explanation of the clinical findings. 4. Clinically undetermined, no explanation for the clinical findings. PHYSICIAN RESPONSE Can you specify per above: 2 Please remember a lack of response to the above will prompt a phone page by CDI/Coding staff. In responding to this query, please exercise your independent professional judgment. The purpose of this communication is to more accurately reflect the complexity of your patients condition. The fact that a question is asked does not imply that any particular answer is desired or expected. Thank you for your timely response to this clarification. Requestors name: Jose THIS PHYSICIAN QUERY FORM IS A PERMANENT PART OF THE MEDICAL RECORD JOSE ENRIQUEZ Aug 13, 2020 13:11 MICHAEL MACARIO MD [facility] CCDS Aug 14, 2020 19:45
[2020-08-13] MEDS ORDERED: LOPERAMIDE 2 MG (IMODIUM) TABLET PO PRN (21:00)
[2020-08-13] MEDS ORDERED: ALPRAZolam 0.25 MG (XANAX) TAB PO PRN (21:00)
[2020-08-13] MEDS ORDERED: ONDANSETRON 4 MG/2 ML (SDV) Z0FRAN IVP PRN (21:00)
[2020-08-13] MEDS ORDERED: CALCIUM CARBONATE 500 MG (TUMS) TAB.CHEW PO PRN (21:00)
[2020-08-13] MEDS ORDERED: HYDROcodone/APAP 5 MG/325 MG (LORTAB) TAB PO PRN (21:00)
[2020-08-13] MEDS ORDERED: MELATONIN 3 MG TABLET PO PRN (21:00)
[2020-08-13] MEDS ORDERED: diphenhydrAMINE 25 MG TAB (BENADRYL) PO PRN (21:00)
[2020-08-13] MEDS ORDERED: DOCUSATE SODIUM 100 MG (COLACE) CAP PO PRN (21:00)
[2020-08-13] MEDS ORDERED: ACETAMINOPHEN 500 MG TAB (TYLENOL) PO PRN (21:00)
[2020-08-13] MEDS: SENNA W/DOCUSATE (SENOKOT S) TABLET PO SCH (22:00)
[2020-08-14 05:27] LABS: ALBUMIN 3.4 GM/DL (3.2-4.5); CHLORIDE 102 MMOL/L (98-107); POTASSIUM 3.7 MMOL/L (3.6-5.0); SODIUM 135 MMOL/L (135-145)
[2020-08-14 05:29] LABS: CALCIUM 8.6 MG/DL (8.5-10.1)
[2020-08-14 05:30] LABS: GLUCOSE 121 MG/DL (70-105); TOTAL PROTEIN 6.3 GM/DL (6.4-8.2)
[2020-08-14 05:31] LABS: BASOPHILS % (AUTO) 0 % (0-10); CARBON DIOXIDE 24 MMOL/L (21-32); EOSINOPHILS # (AUTO) 0.2 10^3/uL (0.0-0.3); EOSINOPHILS % (AUTO) 2 % (0-10); HEMATOCRIT 41 % (40-54); HEMOGLOBIN 13.5 g/dL (13.3-17.7); LYMPHOCYTES # (AUTO) 1.5 10^3/uL (1.0-4.0); LYMPHOCYTES % (AUTO) 20 % (12-44); MEAN CORPUSCULAR HEMOGLOBIN 28 pg (25-34); MEAN CORPUSCULAR HGB CONC 33 g/dL (32-36); MEAN CORPUSCULAR VOLUME 86 fL (80-99); MEAN PLATELET VOLUME 11.4 fL (9.0-12.2); MONOCYTES # (AUTO) 0.8 10^3/uL (0.0-1.0); MONOCYTES % (AUTO) 11 % (0-12); NEUTROPHILS # (AUTO) 4.9 10^3/uL (1.8-7.8); NEUTROPHILS % (AUTO) 66 % (42-75); PLATELET COUNT 233 10^3/uL (130-400); WHITE BLOOD COUNT 7.4 10^3/uL (4.3-11.0)
[2020-08-14 05:32] LABS: BILIRUBIN,TOTAL 0.9 MG/DL (0.1-1.0)
[2020-08-14 05:33] LABS: ALKALINE PHOSPHATASE 68 U/L (40-136)
[2020-08-14 05:34] LABS: CREATININE SERUM 1.08 MG/DL (0.60-1.30); GFR ESTIMATED > 60
[2020-08-14 05:35] LABS: BUN/CREATININE RATIO 19
[2020-08-14 05:36] LABS: ALANINE AMINOTRANSFERASE 31 U/L (0-55)
[2020-08-14] MEDS: KCL 20 MEQ TAB (K-DUR) PO SCH (05:57)
[2020-08-14] MEDS: CATHETER FLUSH 10 ML SYR IV SCH ×2 (05:57→14:00)
[2020-08-14] MEDS ORDERED: PANTOPRAZOLE 40 MG (PROTONIX) TAB PO SCH (07:00)
[2020-08-14] MEDS: SPIRONOLACTONE 25 MG (ALDACTONE) TAB PO SCH (08:40)
[2020-08-14] MEDS: APIXABAN 5 MG (ELIQUIS) TABLET PO SCH (08:40)
[2020-08-14] MEDS: DIGOXIN 0.25 MG (LANOXIN) TAB PO SCH (08:40)
[2020-08-14] MEDS: lisINopril 5 MG (PRINIVIL) TABLET PO SCH (08:40)
[2020-08-14] MEDS: SENNA W/DOCUSATE (SENOKOT S) TABLET PO SCH (08:40)
[2020-08-14] MEDS: FUROSEMIDE 40 MG/4 ML INJ (LASIX) IVP SCH (08:41)
--- NOTE | 2020-08-14 10:09 | Discharge Summary ---
Discharge Summary Hospital Course Was the Problem List Reviewed?: Yes Problems/Dx: (1) Atrial flutter with rapid ventricular response Status: Acute (2) NICM (nonischemic cardiomyopathy) (3) CHF (congestive heart failure) Hospital Course Date of Admission: Aug 10, 2020 at 12:06 Admission Diagnosis : Family Physician/Provider: Kendy Abad Aprn Date of Discharge: 08/14/20 Discharge Diagnosis: Atrial flutter with rapid ventricular response, ischemic cardiomyopathy requiring LifeVest Hospital Course: Pt had a delaying in discharge by one day He had a life vest placed All meds were sent to [email or web address] in [place], [place] Pt was discharged in improved condition See progress note from yesterday for hospital course Labs and Pending Lab Test: Laboratory Tests 08/14/20 04:44: White Blood Count 7.4, Red Blood Count 4.77, Hemoglobin 13.5, Hematocrit 41, Mean Corpuscular Volume 86, Mean Corpuscular Hemoglobin 28, Mean Corpuscular Hemoglobin Concent 33, Red Cell Distribution Width 13.8, Platelet Count 233, Mean Platelet Volume 11.4, Immature Granulocyte % (Auto) 0, Neutrophils (%) (Auto) 66, Lymphocytes (%) (Auto) 20, Monocytes (%) (Auto) 11, Eosinophils (%) (Auto) 2, Basophils (%) (Auto) 0, Neutrophils # (Auto) 4.9, Lymphocytes # (Auto) 1.5, Monocytes # (Auto) 0.8, Eosinophils # (Auto) 0.2, Basophils # (Auto) 0.0, Immature Granulocyte # (Auto) 0.0, Sodium Level 135, Potassium Level 3.7, Chloride Level 102, Carbon Dioxide Level 24, Anion Gap 9, Blood Urea Nitrogen 20H, Creatinine 1.08, Estimat Glomerular Filtration Rate > 60, BUN/Creatinine Ratio 19, Glucose Level 121H, Calcium Level 8.6, Corrected Calcium 9.1, Total Bi lirubin 0.9, Aspartate Amino Transf (AST/SGOT) 20, Alanine Aminotransferase (ALT/SGPT) 31, Alkaline Phosphatase 68, Total Protein 6.3L, Albumin 3.4, Digoxin Level 0.39L Microbiology 08/10/20 Urine Culture - Final, Complete NO GROWTH 08/10/20 Blood Culture - Preliminary, Resulted No growth Home Meds Active Protonix (Pantoprazole Sodium) 40 Mg Tablet.dr 40 Mg PO DAILY Diltiazem 24Hr ER (Diltiazem HCl) 180 Mg Cap.er.24h 180 Mg PO DAILY Carvedilol 3.125 Mg Tablet 3.125 Mg PO BID Eliquis (Apixaban) 5 Mg Tablet 5 Mg PO BID Potassium Chloride 20 Meq Tablet.er 20 Meq PO DAILY Metolazone 2.5 Mg Tablet 2.5 Mg PO DAILY Lasix (Furosemide) 80 Mg Tablet 80 Mg PO DAILY Aspirin EC (Aspirin) 81 Mg Tablet.dr 81 Mg PO DAILY Spironolactone 25 Mg Tablet 25 Mg PO DAILY Metoprolol Succinate 25 Mg Tab.er.24h 25 Mg PO DAILY Digox (Digoxin) 250 Mcg Tablet 0.25 Mg PO DAILY Reported Fish Oil 1,000 mg Capsule ([place] 3 Polyunsat Fatty Acids) 1,000 Mg Cap 1,000 Mg PO DAILY Coconut Oil 1,000 Mg Capsule 1,000 Mg PO DAILY Co Q-10 100 mg Softgel (Ubidecarenone/Vit E Acetate) 1 Each Capsule 1 Cap PO DAILY Lisinopril 5 Mg Tablet 5 Mg PO DAILY LAST FILLED #30 09-11-16 Magnesium Oxide 400 Mg Tablet 400 Mg PO DAILY LAST FILLED #30 02-28-16 Assessment/Pt Instructions PCP in 1 week Discharge Planning: <30 minutes discharge planning Discharge Physical Examination Vital Signs Vital Signs Date Time Temp Pulse Resp B/P (MAP) Pulse Ox O2 Delivery O2 Flow Rate FiO2 08/14/20 08:38 108/60 (76) 08/14/20 08:00 Room Air 08/14/20 07:56 35.8 77 20 98 08/14/20 07:13 0.00 08/13/20 06:43 21 General Appearance: No Apparent Distress, WD/WN, Chronically ill Allergies: Coded Allergies: No Known Drug Allergies (Unverified , 04/18/14) Discharge Summary Date of Admission Aug 10, 2020 at 12:06 Date of Discharge Discharge Date: Aug 13, 2020 Admission Diagnosis 1. Atrial fibrillation with rapid ventricular response under improved control on Cardizem likely switch to oral medication defer to Dr. Cason. 2. Acute on chronic systolic heart failure aggravated by untreated obstructive sleep apnea and atrial fibrillation ischemic etiology less likely defer to Dr. Cason continue diuretic therapy. 3. Untreated obstructive sleep apnea secondary to patient noncompliance heart failure also aggravated by longstanding noncompliance. Patient states he will after discussion resume using his CPAP machine. Comfort Measures/ Advance Care discuss with: patient Time spent on discussion (min): 10 Discharge Diagnosis Assessment: Atrial flutter with rapid ventricular response Congestive heart failure ejection fraction 10% awaiting LifeVest Plan: LifeVest Discharge home EDGAR CHOPRA DO Aug 14, 2020 10:09
[2020-08-14 11:30] VITALS: BP 98/60
[2020-08-14 16:18] VITALS: BP 104/60
[2020-08-14 18:46] VITALS: BP 104/60
--- NOTE | 2020-08-14 18:49 | Progress Note - Cardiology ---
Cardiology SOAP Progress Note Subjective: No cp or palp or syncope Shortness of breath and malaise have improved No n/v/d Wishes to to home Objective: I&O/Vital Signs 08/14/20 08/14/20 08/14/20 08/14/20 07:00 07:13 07:56 08:00 Temp 35.8 Pulse 100 77 Resp 20 Pulse Ox 94 98 O2 Delivery Room Air Room Air Room Air O2 Flow Rate 0.00 08/14/20 08/14/20 08/14/20 08/14/20 08:38 11:30 11:30 16:18 Temp 36.3 36.3 35.5 Pulse 71 71 106 Resp 20 20 22 B/P (MAP) 108/60 (76) 98/60 (73) 98/60 (73) 104/60 (75) Pulse Ox 98 98 95 O2 Delivery Room Air Room Air Room Air 08/14/20 16:18 Temp 35.5 Pulse 106 Resp 22 B/P (MAP) 104/60 (75) Pulse Ox 95 O2 Delivery Room Air 08/13/20 23:59 Intake Total 1640 ml Balance 1640 ml Weight (Pounds): 273 Weight (Ounces): 0.0 Weight (Calculated Kilograms): 123.779119 Constitutional: AAO x 3, well-developed, well-nourished Respiratory: No accessory muscle use, No respiratory distress; chest expansion is symmetric, chest is bilaterally symmetric, other (diminished lower lobes bilat) Cardiovascular: irregularly irregular; No JVD; S1 and S2 Gastrointestional: No tender; soft, round, audible bowel sounds Extremities: no lower extremity edema bilateral Neurologic/Psychiatric: oriented x 3, other (moves all limbs equally) Skin: normal color Results/Procedures: Labs Laboratory Tests 08/14/20 04:44: White Blood Count 7.4, Red Blood Count 4.77, Hemoglobin 13.5, Hematocrit 41, Mean Corpuscular Volume 86, Mean Corpuscular Hemoglobin 28, Mean Corpuscular Hemoglobin Concent 33, Red Cell Distribution Width 13.8, Platelet Count 233, Mean Platelet Volume 11.4, Immature Granulocyte % (Auto) 0, Neutrophils (%) (Auto) 66, Lymphocytes (%) (Auto) 20, Monocytes (%) (Auto) 11, Eosinophils (%) (Auto) 2, Basophils (%) (Auto) 0, Neutrophils # (Auto) 4.9, Lymphocytes # (Auto) 1.5, Monocytes # (Auto) 0.8, Eosinophils # (Auto) 0.2, Basophils # (Auto) 0.0, Immature Granulocyte # (Auto) 0.0, Sodium Level 135, Potassium Level 3.7, Chloride Level 102, Carbon Dioxide Level 24, Anion Gap 9, Blood Urea Nitrogen 20H, Creatinine 1.08, Estimat Glomerular Filtration Rate > 60, BUN/Creatinine Ratio 19, Glucose Level 121H, Calcium Level 8.6, Corrected Calcium 9.1, Total Bilirubin 0.9, Aspartate Amino Transf (AST/SGOT) 20, Alanine Aminotransferase (ALT/SGPT) 31, Alkaline Phosphatase 68, Total Protein 6.3L, Albumin 3.4, Digoxin Level 0.39L Microbiology 08/10/20 Urine Culture - Final, Complete NO GROWTH 08/10/20 Blood Culture - Preliminary, Resulted No growth Laboratory Tests 08/13/20 05:18 08/14/20 04:44 A/P: Assessment: New onset a-fib/flutter with RVR, probably related to untreated (due to noncompliance) ANISA Acute on chronic systolic CHF d/t decompensated CHF d/t dilated cardiomyopathy d/t non-compliance with medications of treatment of ANISA Mild troponin elevation likely secondary to acute decompensated CHF and/or a- fib/flutter with RVR Non ischemic dilated cardiomyopathy. - Cardiomyopathy first diagnosed in April 2014 and improved with treatment to LVEF of 45-50% on echo eval of May 2015; then had recurrence due to noncompliance. - Echo of 02/24/17 shows marked cardiomegaly and LVEF 10 to 15%. Most recent echo of Dec 2018 showed LVEF improved to 50-55% with mild to mod regurg, RVSP 35 mmHg - Echo of 08/12/20: LVEF 30-35%, diffuse hypokinesis, grade 3 skaggs dysfunction, biatrial and right heart enlargement, mod MR, mod TR, PASP 45-[address] angio of the chest on 02/26/17 shows mediastinal lymphadenopathy: lymphoma is a concern. 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 Metastatic disease and lymphoma would be in the differential diagnosis for these abnormally enlarged lymph nodes. Per CTA of 02-26-17. Managed by his pcp No significant coronary artery disease (angiographically normal coronary arteries with a right dominant system) per cardiac cath of 04-18-2014 Obesity, BMI of approx 41 Quit smoking in 2011 Erectile dysfunction Plan: Complex management LifeVest in place Continue oral dig and oral dilt Continue apixaban for stroke prophylaxis Outpt f/u advised Compliance with medical instructions advised MICHAEL CADENA MD FACP FAC CCDS Aug 14, 2020 18:49
== END 2020-08-14 18:48 | disposition home or self-care (01) | DRG 308 ==
LOC: EDUNIT# 09:37 → ER 09:40 → ICU 12:06 → 4TH 08-12 14:46
PROVIDERS: ADMIT Internal Medicine; ATTEND Internal Medicine
PROC: 5A09357 Assistance with Respiratory Ventilation, Less than 24 Consecutive Hours, Continuous Positive Airway Pressure (ICD-10-PCS; principal; 2020-08-11)
DX: I48.91 Unspecified atrial fibrillation (principal); I50.23 Acute on chronic systolic (congestive) heart failure; Z68.41 Body mass index [BMI] 40.0-44.9, adult; I48.92 Unspecified atrial flutter; I42.0 Dilated cardiomyopathy; R59.1 Generalized enlarged lymph nodes; G47.33 Obstructive sleep apnea (adult) (pediatric); K21.9 Gastro-esophageal reflux disease without esophagitis; Z20.822 Contact with and (suspected) exposure to COVID-19; E66.9 Obesity, unspecified; R77.8 Other specified abnormalities of plasma proteins; N52.9 Male erectile dysfunction, unspecified; R12 Heartburn; Z91.14 Patient's other noncompliance with medication regimen; Z91.19 Patient's noncompliance with other medical treatment and regimen; Z87.891 Personal history of nicotine dependence; Z79.82 Long term (current) use of aspirin
CPT/HCPCS: 36415; 71045; 80048; 80053; 80061; 80162; 81000; 83605; 83735; 83874; 83880; 84100; 84484; 85025; 85379; 85610; 85730; 86141; 87040; 87088; 87636; 93005; 93041; 93306; 94640; 94660; 94760; 96365; 96366; 96375

== ENCOUNTER 2020-09-28 20:06 | Inpatient (IN) | payer OTHER ==
[~2020-09-28] VITALS: Ht 177.8 cm; Wt 3135.7 kg
[~2020-09-28 20:06] MED LIST changes: +APIX5TAB PO; +DILT180C85 PO; +PANT40TA2 PO
[2020-09-28] MEDS ORDERED: dilTIAZem DRIP PRE-MIX 125 ML IV SCH (20:30)
[2020-09-28] MEDS ORDERED: ASPIRIN 81 MG CHEW (CHILDREN'S ASA) PO ONE (20:30)
[2020-09-28 20:37] LABS: BASOPHILS % (AUTO) 0 % (0-10); EOSINOPHILS # (AUTO) 0.2 10^3/uL (0.0-0.3); EOSINOPHILS % (AUTO) 1 % (0-10); HEMATOCRIT 41 % (40-54); HEMOGLOBIN 13.4 g/dL (13.3-17.7); LYMPHOCYTES % (AUTO) 9 % (12-44); MEAN CORPUSCULAR HEMOGLOBIN 27 pg (25-34); MEAN CORPUSCULAR HGB CONC 32 g/dL (32-36); MEAN CORPUSCULAR VOLUME 83 fL (80-99); MEAN PLATELET VOLUME 10.8 fL (9.0-12.2); MONOCYTES # (AUTO) 1.3 10^3/uL (0.0-1.0); MONOCYTES % (AUTO) 11 % (0-12); NEUTROPHILS # (AUTO) 9.4 10^3/uL (1.8-7.8); NEUTROPHILS % (AUTO) 78 % (42-75); PLATELET COUNT 300 10^3/uL (130-400)
[2020-09-28 20:47] LABS: INR 1.3 (0.8-1.4); PROTHROMBIN TIME PATIENT 16.1 SEC (12.2-14.7)
[2020-09-28] MEDS ORDERED: HYDROcodone/APAP 5 MG/325 MG (LORTAB) TAB PO ONE (21:15)
[2020-09-28 21:17] LABS: ALBUMIN 3.7 GM/DL (3.2-4.5); BILIRUBIN,TOTAL 0.8 MG/DL (0.1-1.0); CALCIUM 9.1 MG/DL (8.5-10.1); CREATININE SERUM 1.37 MG/DL (0.60-1.30); MAGNESIUM 2.4 MG/DL (1.6-2.4); POTASSIUM 4.4 MMOL/L (3.6-5.0); TOTAL PROTEIN 7.3 GM/DL (6.4-8.2)
--- NOTE | 2020-09-28 21:36 | Diagnostic Imaging Report ---
EXAMINATION: Chest 1 view. HISTORY: Chest pain. COMPARISON: 08/10/2020. FINDINGS: There is stable cardiomegaly. Hazy opacities are seen throughout the lungs. No focal consolidation. No large pleural effusion or pneumothorax. No acute osseous abnormality. IMPRESSION: Cardiomegaly, similar to the prior exam. Hazy opacities throughout the lungs may represent edema or infection. Dictated by: Dictated on workstation # [id number]
[2020-09-28] MEDS ORDERED: METOCLOPRAMIDE INJ 10 MG/2 ML (REGLAN) IVP ONE (21:45)
--- NOTE | 2020-09-28 22:04 | ED Respiratory ---
General Chief Complaint: Respiratory Problems Stated Complaint: SOA/COUGH Nursing Triage Note: c/o increases soa, reports being dc'd from [facility] today because they "weren't doing anything for me" hx chf with low ef. life vest in place Source: patient, family Exam Limitations: no limitations History of Present Illness Date Seen by Provider: Sep 28, 2020 Time Seen by Provider: 20:00 Initial Comments To ER by private vehicle with reports of shortness of breath. He was discharged from [facility] today, admitted on Thursday of this week. He states he was there for CHF. History of nonischemic cardiomyopathy. He arrives wearing a LifeVest. He states that he was told his ejection fraction at [place] was 20%. Most recently 30% for us here earlier this year. Timing/Duration: just prior to arrival Severity: moderate Associated Symptoms: denies symptoms Allergies and Home Medications Allergies Coded Allergies: No Known Drug Allergies (Unverified , 04/18/14) Home Medications Apixaban 5 Mg Tablet, 5 MG PO BID Prescribed by: EDGAR CHOPRA on 08/13/20 1059 Aspirin 81 Mg Tablet.dr, 81 MG PO DAILY Prescribed by: JONATHAN RUST on 02/27/17 1019 Carvedilol 3.125 Mg Tablet, 3.125 MG PO BID Prescribed by: EDGAR CHOPRA on 08/13/20 1059 Coconut Oil 1,000 Mg Capsule, 1,000 MG PO DAILY, (Reported) Digoxin 250 Mcg Tablet, 0.25 MG PO DAILY Prescribed by: JONATHAN RUST on 02/27/17 1019 Diltiazem HCl 180 Mg Cap.er.24h, 180 MG PO DAILY Prescribed by: EDGAR CHOPRA on 08/13/20 1059 Furosemide 80 Mg Tablet, 80 MG PO DAILY Prescribed by: JONATHAN RUST on 02/27/17 1019 Lisinopril 5 Mg Tablet, 5 MG PO DAILY, (Reported) LAST FILLED #30 09-12-15 Magnesium Oxide 400 Mg Tablet, 400 MG PO DAILY, (Reported) LAST FILLED #30 02-28-16 Metolazone 2.5 Mg Tablet, 2.5 MG PO DAILY Prescribed by: JONATHAN RUST on 02/27/17 1019 Henderson 3 Polyunsat Fatty Acids 1,000 Mg Cap, 1,000 MG PO DAILY, (Reported) Pantoprazole Sodium 40 Mg Tablet.dr, 40 MG PO DAILY Prescribed by: EDGAR CHOPRA on 08/13/20 1059 Potassium Chloride 20 Meq Tablet.er, 20 MEQ PO DAILY Prescribed by: JONATHAN RUST on 02/27/17 1019 Spironolactone 25 Mg Tablet, 25 MG PO DAILY Prescribed by: JONATHAN RUST on 02/27/17 1019 Ubidecarenone/Vit E Acetate 1 Each Capsule, 1 CAP PO DAILY, (Reported) Patient Home Medication List Home Medication List Reviewed: Yes Review of Systems Review of Systems Constitutional: see HPI; No chills, No fever EENTM: see HPI Respiratory: see HPI, short of breath Cardiovascular: no symptoms reported Genitourinary: no symptoms reported Musculoskeletal: no symptoms reported Skin: no symptoms reported Psychiatric/Neurological: No Symptoms Reported Hematologic/Lymphatic: No Symptoms Reported Past Dohzjjo-Jowssa-Bdbhbp Hx Patient Social History Tobacco Use?: No Smoking Status: Never a Smoker Substance use?: No Alcohol Use?: No Pt feels they are or have been: No Immunizations Up To Date PED Vaccines UTD: No Seasonal Allergies Seasonal Allergies: No Past Medical History Surgery/Hospitalization HX: chf, low ef. Surgeries: No Respiratory: Yes (undiagnosed COPD) Sleep Apnea Currently Using CPAP: Yes Cardiac: Yes (CHF) Neurological: No Reproductive Disorders: No Sexually Transmitted Disease: No HIV/AIDS: No Genitourinary: No Gastrointestinal: Yes Gastroesophageal Reflux Musculoskeletal: No Endocrine: No HEENT: No Loss of Vision: Denies Cancer: No Psychosocial: No Integumentary: Yes ("RASH" (APPEARS TO BE PSORIASIS)) Blood Disorders: No Adverse Reaction/Blood Tranf: No Family Medical History Diabetes mellitus 19 MOTHER Hypertension 19 FATHER Diabetes, Hypertension Physical Exam Vital Signs - First Documented 09/28/20 20:17 Temp 36.8 Pulse 168 Resp 26 B/P (MAP) 134/111 (119) Pulse Ox 99 O2 Delivery Room Air Capillary Refill : Less Than 3 Seconds Height: 5'10.00" Weight: 273lbs. 0.0oz. 123.156577ry; 42.00 BMI Method:Stated General Appearance: WD/WN, no apparent distress, other (Appears quite unhealthy chronically) Eyes: Bilateral Eye Normal Inspection, Bilateral Eye PERRL, Bilateral Eye EOMI Neck: non-tender, full range of motion Respiratory: no respiratory distress, no accessory muscle use Cardiovascular: tachycardia, irregularly irregular Gastrointestinal: normal bowel sounds, non tender, soft Neurologic/Psychiatric: alert, normal mood/affect, oriented x 3 Skin: normal color, warm/dry Progress/Results/Core Measures Suspected Sepsis SIRS Temperature: Pulse: 168 Respiratory Rate: 26 Laboratory Tests 09/28/20 20:28: White Blood Count 12.0H Blood Pressure 134 /111 Mean: 119 Laboratory Tests 09/28/20 20:28: Creatinine 1.37H, INR Comment 1.3, Platelet Count 300, Total Bilirubin 0.8 Results/Orders Lab Results Laboratory Tests Test 09/28/20 20:28 Range/Units White Blood Count 12.0 H 4.3-11.0 10^3/uL Red Blood Count 4.97 4.30-5.52 10^6/uL Hemoglobin 13.4 13.3-17.7 g/dL Hematocrit 41 40-54 % Mean Corpuscular Volume 83 80-99 fL Mean Corpuscular Hemoglobin 27 25-34 pg Mean Corpuscular Hemoglobin Concent 32 32-36 g/dL Red Cell Distribution Width 14.4 10.0-14.5 % Platelet Count 300 130-400 10^3/uL Mean Platelet Volume 10.8 9.0-12.2 fL Immature Granulocyte % (Auto) 1 % Neutrophils (%) (Auto) 78 H 42-75 % Lymphocytes (%) (Auto) 9 L 12-44 % Monocytes (%) (Auto) 11 0-12 % Eosinophils (%) (Auto) 1 0-10 % Basophils (%) (Auto) 0 0-10 % Neutrophils # (Auto) 9.4 H 1.8-7.8 10^3/uL Lymphocytes # (Auto) 1.0 1.0-4.0 10^3/uL Monocytes # (Auto) 1.3 H 0.0-1.0 10^3/uL Eosinophils # (Auto) 0.2 0.0-0.3 10^3/uL Basophils # (Auto) 0.0 0.0-0.1 10^3/uL Immature Granulocyte # (Auto) 0.1 0.0-0.1 10^3/uL Prothrombin Time 16.1 H 12.2-14.7 SEC INR Comment 1.3 0.8-1.4 Activated Partial Thromboplast Time 36 H 24-35 SEC Sodium Level 134 L 135-145 MMOL/L Potassium Level 4.4 3.6-5.0 MMOL/L Chloride Level 99 98-107 MMOL/L Carbon Dioxide Level 24 21-32 MMOL/L Anion Gap 11 5-14 MMOL/L Blood Urea Nitrogen 24 H 7-18 MG/DL Creatinine 1.37 H 0.60-1.30 MG/DL Estimat Glomerular Filtration Rate 55 BUN/Creatinine Ratio 18 Glucose Level 146 H 70-105 MG/DL Calcium Level 9.1 8.5-10.1 MG/DL Corrected Calcium 9.3 8.5-10.1 MG/DL Magnesium Level 2.4 1.6-2.4 MG/DL Total Bilirubin 0.8 0.1-1.0 MG/DL Aspartate Amino Transf (AST/SGOT) 35 H 5-34 U/L Alanine Aminotransferase (ALT/SGPT) 84 H 0-55 U/L Alkaline Phosphatase 92 40-136 U/L Myoglobin 122.4 H 10.0-92.0 NG/ML Troponin I < 0.028 <0.028 NG/ML Total Protein 7.3 6.4-8.2 GM/DL Albumin 3.7 3.2-4.5 GM/DL My Orders Orders - VANNESA RANDALL APRN Cbc With Automated Diff (09/28/20 20:) Magnesium (09/28/20 20:24) Chest 1 View, Ap/Pa Only (09/28/20 20:24) Ekg Tracing (09/28/20 20:24) Comprehensive Metabolic Panel (09/28/20 20:24) Myoglobin Serum (09/28/20 20:24) Protime With Inr (09/28/20 20:24) Partial Thromboplastin Time (09/28/20 20:24) O2 (09/28/20 20:24) Monitor-Rhythm Ecg Trace Only (09/28/20 20:24) Lipid Panel (09/29/20 06:00) Ed Iv/Invasive Line Start (09/28/20 20:24) Troponin I (09/28/20 20:24) Aspirin Chewable Tablet (Baby Aspirin Ch (09/28/20 20:30) Diltiazem Drip Pre-Mix (Cardizem Drip Pr (09/28/20 20:30) Diltiazem Injection (Cardizem Injection) (09/28/20 20:30) Diltiazem Cd 24 Hr Capsule (Cardizem Cd (09/28/20 21:00) Hydrocodone/Apap 5/325 Tablet (Lortab 5 (09/28/20 21:15) BNP (09/28/20 21:36) Metoclopramide Injection (Reglan Injecti (09/28/20 21:45) Digoxin (09/28/20 21:50) Medications Given in ED Current Medications Medications Dose Ordered Sig/Jessica Route Start Time Stop Time Status Last Admin Dose Admin Acetaminophen/ Hydrocodone Bitart 1 ea ONCE ONCE PO 09/28/20 21:15 09/28/20 21:16 DC 09/28/20 21:23 1 EA Aspirin 324 mg ONCE ONCE PO 09/28/20 20:30 09/28/20 20:31 DC 09/28/20 20:40 324 MG Diltiazem HCl 10 mg ONCE ONCE IVP 09/28/20 20:30 09/28/20 20:31 DC 09/28/20 20:40 10 MG Diltiazem HCl 240 mg ONCE ONCE PO 09/28/20 21:00 09/28/20 21:01 DC 09/28/20 21:23 240 MG Metoclopramide HCl 10 mg ONCE ONCE IVP 09/28/20 21:45 09/28/20 21:46 DC 09/28/20 21:46 10 MG Vital Signs/I&O 09/28/20 20:17 Temp 36.8 Pulse 168 Resp 26 B/P (MAP) 134/111 (119) Pulse Ox 99 O2 Delivery Room Air Capillary Refill : Less Than 3 Seconds Blood Pressure Mean: 119 Departure Communication (Admissions) His family arrives with his medication list and his medications and bottles. He states that he has been compliant with them. This includes: Aspirin 81 mg p.o. daily Carvedilol 3.125 mg p.o. twice daily Atorvastatin 20 mg p.o. nightly Bumex 2 mg p.o. twice daily Digoxin 0.25 mg p.o. daily Eliquis 5 mg p.o. twice daily Lisinopril 5 mg p.o. daily Potassium chloride 20 mEq p.o. daily Aldactone 25 mg p.o. daily Omeprazole 20 mg p.o. daily Diltiazem 180 milligrams p.o. daily [address] Chopra will admit consult Dr. Lou from cardiology. We will keep him n.p.o. in case he needs electrically cardioverted. He is hemodynamically stable at this point. Cardizem drip at 5 mg an hour has his heart rate still atrial fibrillation 115 blood pressure 114/90. I just gave him a Cardizem CD 240. As this begins to work we will titrate the drip off. I also gave some Reglan for nausea and hiccups. Impression Primary Impression: Atrial fibrillation with RVR Additional Impression: NICM (nonischemic cardiomyopathy) Disposition: ADMITTED INPATIENT Condition: Stable Admissions Decision to Admit Reason: Admit from ER (General) Decision to Admit/Date: Sep 28, 2020 Time/Decision to Admit Time: 22:01 Departure-Patient Inst. Referrals: [facility] (PCP/Family) Primary Care Physician VANNESA RANDALL APRN Sep 28, 2020 22:03
--- NOTE | 2020-09-29 00:15 | Tele-ICU Progress Note ---
Progress Note 49M with afib/flutter. NICM, EF 20%, wearing life vest, ANISA discharged from [facility] today for CHF exacerbation(admitted Thursday). Called EMS for dyspnea, found to be in afib with RVR. Afib noted to be new on admite 07/2020, discharged on oral dig and oral dilt, apixaban. Started on diltiazem. Had to be weaned to 2.5 for BP in the 80s. current 101/91, 90-110. Would consider addition of digoxin, RN will call cardiology and initiate if they agree. Will add on dig level to ER labs. Focused Exam Height, Weight, BMI Height: 5'10.00" Weight: 273lbs. 0.0oz. 123.059794up; 42.60 BMI Method:Stated KYLIE FRENCH MD Sep 29, 2020 00:15
[2020-09-29] MEDS ORDERED: PHENYLEPHRINE INJECTION 10 MG in NS (IVPB) 250 ML IV SCH (01:45)
[2020-09-29 02:20] VITALS: BP 124/25
[2020-09-29 04:00] VITALS: BP 134/111
[2020-09-29 04:45] LABS: CHOLESTEROL 97 MG/DL (< 200); HDL CHOLESTEROL 25 MG/DL (40-60); TRIGLYCERIDES 45 MG/DL (<150); VLDL CHOLESTEROL 9 MG/DL (5-40)
[2020-09-29] MEDS ORDERED: RT-ALBUTEROL/IPRATROPIUM 3 ML (DUONEB) VIAL INH PRN (05:00)
[2020-09-29 05:51] LABS: BASOPHILS % (AUTO) 0 % (0-10); EOSINOPHILS # (AUTO) 0.2 10^3/uL (0.0-0.3); EOSINOPHILS % (AUTO) 2 % (0-10); HEMATOCRIT 41 % (40-54); HEMOGLOBIN 12.8 g/dL (13.3-17.7); LYMPHOCYTES # (AUTO) 1.2 10^3/uL (1.0-4.0); LYMPHOCYTES % (AUTO) 14 % (12-44); MEAN CORPUSCULAR HEMOGLOBIN 27 pg (25-34); MEAN CORPUSCULAR HGB CONC 32 g/dL (32-36); MEAN CORPUSCULAR VOLUME 85 fL (80-99); MEAN PLATELET VOLUME 10.7 fL (9.0-12.2); MONOCYTES % (AUTO) 11 % (0-12); NEUTROPHILS # (AUTO) 6.6 10^3/uL (1.8-7.8); NEUTROPHILS % (AUTO) 73 % (42-75); PLATELET COUNT 275 10^3/uL (130-400)
[2020-09-29 06:13] LABS: CALCIUM 8.9 MG/DL (8.5-10.1); CREATININE SERUM 1.1 MG/DL (0.60-1.30); MAGNESIUM 2.3 MG/DL (1.6-2.4); POTASSIUM 3.8 MMOL/L (3.6-5.0)
[2020-09-29] MEDS: KCL 20 MEQ TAB (K-DUR) PO SCH (06:20)
[2020-09-29] MEDS: POTASSIUM CL 10MEQ/50ML IVPB 50 ML IV SCH (06:20)
[2020-09-29] MEDS: dilTIAZem DRIP PRE-MIX 125 ML IV SCH (06:20)
[2020-09-29] MEDS: MAGNESIUM 1 GM/100 ML IVPB 100 ML IV SCH (06:20)
[2020-09-29] MEDS: APIXABAN 5 MG (ELIQUIS) TABLET PO SCH ×2 (08:10→20:22)
[2020-09-29] MEDS: SPIRONOLACTONE 25 MG (ALDACTONE) TAB PO SCH (08:10)
[2020-09-29] MEDS: BUMETANIDE 1 MG (BUMEX) TAB PO SCH ×2 (08:11→15:12)
[2020-09-29] MEDS: RT-ALBUTEROL/IPRATROPIUM 3 ML (DUONEB) VIAL INH SCH ×3 (08:50→22:00)
--- NOTE | 2020-09-29 09:18 | Tele-ICU Progress Note ---
Progress Note video rounds completed 49 y/o with a fib RVR On diltiazem drip Cardiology following PE: lyingi inbed, comfortable HR: still in afib Meds: apixaban 5mg BID Dilt drip K 3.8 PLAN: cardiology on consult await their recs Focused Exam Height, Weight, BMI Height: 5'10.00" Weight: 273lbs. 0.0oz. 123.111817wx; 42.60 BMI Method:Stated AKIRA RICHARD MD Sep 29, 2020 09:17
[2020-09-29] MEDS ORDERED: DIGOXIN 0.125 MG (LANOXIN) TAB PO NR (10:15)
--- NOTE | 2020-09-29 10:17 | Consultation-Cardiology ---
HPI-Cardiology Cardiology Consultation: Date of Consultation 09/29/2020 Date of Admission 09/28/2020 Attending Physician Annika Chopra DO Admitting Physician [place] Consulting Physician DARIELA COX JR, MD HPI: Time Seen by a Provider: 10:12 Chief Complaint: Reason for consultation: Atrial fibrillation. I had the pleasure of seeing Faisal in the intensive care unit here and [facility]. He has a history of nonischemic cardiomyopathy with chronic systolic heart failure coupled with persistent atrial fibrillation. He normally follows with one of my partners, Dr. Macario. He has been in and out of the hospital several times over the past few months. Last Thursday he went to [facility] in [place], [place] due to increasing shortness of breath. He thought he might have Covid infection. From his description, it sounds as though he was treated for heart failure and was Covid negative. Yesterday he was discharged home around 3:00 in the afternoon. However, shortly after discharge, he became increasingly shortness of breath. He came to our emergency room last evening due to the worsening shortness of breath. He was found to be in atrial fibrillation with a rapid ventricular rate. He was started on intravenous diltiazem and given diltiazem CD 240 mg orally. He was then admitted to the intensive care unit. Early this morning, I was notified by the nurse that the patient was having low blood pressures and the eICU wanted to start him on phenylephrine. However, the nurse retook the blood pressure manually and he was not hypotensive. As such, he was not started on phenylephrine. When I saw him this morning, he was sitting on the side of the bed. He was still feeling short of breath but somewhat better than last evening. He tells me he thinks the reason he got more shortness of breath was because his normal outpatient medications were discontinued when he was in [place]. However, he is not sure exactly what changes were made. He has not had any palpitations with the atrial fibrillation. He denies chest discomfort. He had been having paroxysmal nocturnal dyspnea and orthopnea. He denies lightheadedness, syncope, or lower extremity edema. He is a non-smoker. Certain portions of this document may have been dictated utilizing voice recognition technology. Inherent to this technology, typographical and grammatical errors may exist. As much as I am diligent to identify and correct these mistakes, some errors may remain in the document. Review of Systems-Cardiology Review of Systems Other comments Review of 10 organ systems is as per the history of present illness, otherwise negative. JNA-Xrqoxf-Zhvxes Hx Patient Social History Smoking Status: Never a Smoker Have you traveled recently?: No Alcohol Use?: No Pt feels they are or have been: No Immunizations Up To Date Date of Pneumonia Vaccine: Apr 18, 2014 Date of Influenza Vaccine: Apr 18, 2014 Past Medical History PMH As described under Assessment. Family Medical History Family Medical History: He reports his father had HTN. Family History: Diabetes mellitus 19 MOTHER Hypertension 19 FATHER Allergies and Home Medications Allergies Coded Allergies: No Known Drug Allergies (Unverified , 04/18/14) Home Medications Apixaban 5 Mg Tablet, 5 MG PO BID Prescribed by: ANNIKA CHOPRA on 08/13/20 1059 Aspirin 81 Mg Tablet.dr, 81 MG PO DAILY Prescribed by: JONATHAN RUST on 02/27/17 1019 Carvedilol 3.125 Mg Tablet, 3.125 MG PO BID Prescribed by: ANNIKA CHOPRA on 08/13/20 1059 Coconut Oil 1,000 Mg Capsule, 1,000 MG PO DAILY, (Reported) Digoxin 250 Mcg Tablet, 0.25 MG PO DAILY Prescribed by: JONATHAN RUST on 02/27/17 1019 Diltiazem HCl 180 Mg Cap.er.24h, 180 MG PO DAILY Prescribed by: ANNIKA CHOPRA on 08/13/20 1059 Furosemide 80 Mg Tablet, 80 MG PO DAILY Prescribed by: JONATHAN RUST on 02/27/17 1019 Lisinopril 5 Mg Tablet, 5 MG PO DAILY, (Reported) LAST FILLED #30 09-12-15 Magnesium Oxide 400 Mg Tablet, 400 MG PO DAILY, (Reported) LAST FILLED #30 02-28-16 Metolazone 2.5 Mg Tablet, 2.5 MG PO DAILY Prescribed by: JONATHAN RUST on 02/27/17 1019 [place] 3 Polyunsat Fatty Acids 1,000 Mg Cap, 1,000 MG PO DAILY, (Reported) Pantoprazole Sodium 40 Mg Tablet.dr, 40 MG PO DAILY Prescribed by: ANNIKA CHOPRA on 08/13/20 1059 Potassium Chloride 20 Meq Tablet.er, 20 MEQ PO DAILY Prescribed by: JONATHAN RUST on 02/27/17 1019 Spironolactone 25 Mg Tablet, 25 MG PO DAILY Prescribed by: JONATHAN RUST on 02/27/17 1019 Ubidecarenone/Vit E Acetate 1 Each Capsule, 1 CAP PO DAILY, (Reported) Patient Home Medication List Home Medication List Reviewed: Yes Exam Vital Signs Vital Signs Date Time Temp Pulse Resp B/P (MAP) Pulse Ox O2 Delivery O2 Flow Rate FiO2 09/29/20 08:54 117 30 100/87 (91) 97 Room Air 09/29/20 08:43 36.8 09/29/20 04:00 21 09/29/20 02:20 21.00 Physical Exam General: Alert. No acute distress. Well nourished and appears stated age. He is obese. Eye: Extraocular movements are intact. Conjunctivae are clear. There are no xanthelasma. HENT: Normocephalic. Atraumatic. Carotid pulsations 2/2 without bruits. Neck: Jugular venous pressure does not appear elevated. No thyromegaly appreciated. Respiratory: Lungs are clear to auscultation but decreased at the bases bilaterally. Respirations are non-labored. Breath sounds are equal. Symmetrical chest wall expansion. Cardiovascular: Tachycardia with irregular rhythm. No murmur. No gallop. Point of maximal impulse is not appear displaced. Good pulses equal in all extremities. No edema. Gastrointestinal: Soft. Normal bowel sounds. Skin: Skin turgor is normal. There is no pallor. Musculoskeletal: No kyphosis or scoliosis appreciated. Neurologic: Alert and oriented to person, place, time. Cranial nerves 3-12 appear grossly intact. The patient has good motor tone strength in the upper and lower extremities bilaterally. Psychiatric: Cooperative. Appropriate mood & affect. Labs Laboratory Tests Test 09/28/20 20:28 09/28/20 23:40 09/29/20 00:51 09/29/20 04:10 Range/Units White Blood Count 12.0 H 9.0 4.3-11.0 10^3/uL Red Blood Count 4.97 4.79 4.30-5.52 10^6/uL Hemoglobin 13.4 12.8 L 13.3-17.7 g/dL Hematocrit 41 41 40-54 % Mean Corpuscular Volume 83 85 80-99 fL Mean Corpuscular Hemoglobin 27 27 25-34 pg Mean Corpuscular Hemoglobin Concent 32 32 32-36 g/dL Red Cell Distribution Width 14.4 14.5 10.0-14.5 % Platelet Count 300 275 130-400 10^3/uL Mean Platelet Volume 10.8 10.7 9.0-12.2 fL Immature Granulocyte % (Auto) 1 1 % Neutrophils (%) (Auto) 78 H 73 42-75 % Lymphocytes (%) (Auto) 9 L 14 12-44 % Monocytes (%) (Auto) 11 11 0-12 % Eosinophils (%) (Auto) 1 2 0-10 % Basophils (%) (Auto) 0 0 0-10 % Neutrophils # (Auto) 9.4 H 6.6 1.8-7.8 10^3/uL Lymphocytes # (Auto) 1.0 1.2 1.0-4.0 10^3/uL Monocytes # (Auto) 1.3 H 1.0 0.0-1.0 10^3/uL Eosinophils # (Auto) 0.2 0.2 0.0-0.3 10^3/uL Basophils # (Auto) 0.0 0.0 0.0-0.1 10^3/uL Immature Granulocyte # (Auto) 0.1 0.1 0.0-0.1 10^3/uL Prothrombin Time 16.1 H 12.2-14.7 SEC INR Comment 1.3 0.8-1.4 Activated Partial Thromboplast Time 36 H 24-35 SEC Sodium Level 134 L 134 L 135-145 MMOL/L Potassium Level 4.4 3.8 3.6-5.0 MMOL/L Chloride Level 99 100 98-107 MMOL/L Carbon Dioxide Level 24 25 21-32 MMOL/L Anion Gap 11 9 5-14 MMOL/L Blood Urea Nitrogen 24 H 24 H 7-18 MG/DL Creatinine 1.37 H 1.10 0.60-1.30 MG/DL Estimat Glomerular Filtration Rate 55 71 BUN/Creatinine Ratio 18 22 Glucose Level 146 H 108 H 70-105 MG/DL Calcium Level 9.1 8.9 8.5-10.1 MG/DL Corrected Calcium 9.3 8.5-10.1 MG/DL Magnesium Level 2.4 2.3 1.6-2.4 MG/DL Total Bilirubin 0.8 0.1-1.0 MG/DL Aspartate Amino Transf (AST/SGOT) 35 H 5-34 U/L Alanine Aminotransferase (ALT/SGPT) 84 H 0-55 U/L Alkaline Phosphatase 92 40-136 U/L Myoglobin 122.4 H 10.0-92.0 NG/ML Troponin I < 0.028 <0.028 NG/ML B-Type Natriuretic Peptide 931.6 H <100.0 PG/ML Total Protein 7.3 6.4-8.2 GM/DL Albumin 3.7 3.2-4.5 GM/DL Digoxin Level 0.50 L 0.80-2.00 NG/ML SARS-CoV-2 RNA (RT-PCR) Not Detected Not Detecte Glucometer 121 H 70-110 MG/DL Phosphorus Level 3.0 2.3-4.7 MG/DL Triglycerides Level 45 <150 MG/DL Cholesterol Level 97 < 200 MG/DL LDL Cholesterol Direct 73 1-129 MG/DL VLDL Cholesterol 9 5-40 MG/DL HDL Cholesterol 25 L 40-60 MG/DL Radiology ECHOCARDIOGRAM (08/12/2020): 1. Moderate to severe left ventricular dilatation with moderate concentric left ventricular hypertrophy. Moderate to severe left ventricular systolic dysfunction with an estimated ejection fraction of 30 of 35%. 2. Doppler parameters are consistent with grade 3 diastolic dysfunction. 3. The right ventricle is moderate to severely dilated. 4. There is severe biatrial dilatation. 5. There is moderate mitral and tricuspid regurgitation. 6. The estimated pulmonary artery systolic pressure is 45-50 mmHg. ECG Impression ECG Initial ECG Intervals ELECTROCARDIOGRAM (09/28/2020): Atrial fibrillation with a rapid ventricular rate at 153 bpm with low voltage in the precordial leads and poor R wave progression. Diagnosis/Problems Diagnosis/Problems (1) Persistent atrial fibrillation Assessment & Plan: His heart rates have improved with intravenous and oral diltiazem. His twice daily long-acting oral diltiazem has been resumed. We will attempt to wean off the intravenous diltiazem. We will continue apixaban for stroke prophylaxis. I will also resume his digoxin. I do not think he is a candidate for cardioversion due to the severe biatrial enlargement. Likewise, antiarrhythmic drug therapy would unlikely restore sinus rhythm. At some point, we may need to consider AV junction ablation and permanent biventricular pacemaker or defibrillator placement. This can be discussed after his acute decompensation is improved. (2) Acute on chronic combined systolic and diastolic congestive heart failure Assessment & Plan: His BNP was elevated last evening. He has evidence of vascular congestion on his chest x-ray. He has been started on oral bumetanide. I will obtain a follow-up chest x-ray tomorrow. (3) Cardiomyopathy Assessment & Plan: This has been reported to be nonischemic. I will resume his guideline directed medical therapy when tolerated by his blood pressure. He is already back on spironolactone. Due to somewhat low blood pressures, I am hesitant to restart beta-maya or COLTON inhibitor/ARB at this time. (4) Mitral regurgitation Assessment & Plan: He had moderate mitral regurgitation noted on his gram from earlier this year as outlined above. I suspect this is functional mitral regurgitation related to the left ventricular dilatation. There is no indication for invasive intervention at this time. (5) Pulmonary hypertension Assessment & Plan: Most likely related to the chronic heart failure. This will need to be monitored longitudinally. (6) Morbid obesity Assessment & Plan: He needs to work on weight loss. DARIELA COX JR, MD Sep 29, 2020 10:17
--- NOTE | 2020-09-29 11:48 | History & Physical-Hospitalist ---
History of Present Illness HPI/Chief Complaint Chief complaint: Congestive heart failure History of present illness: This is a 49-year-old male who [place] [facility] [place] he was admitted here for congestive heart failure. He has a LifeVest on. Cardiology has been consulted along with eICU. Patient denies any pain. No nausea reported. Check meds and labs. Hypotension precludes diltiazem drip. Ejection fraction is 20%. [place] [address]. Source: patient Exam Limitations: no limitations Date Seen 09/29/20 Time Seen by a Provider: 11:00 Attending Physician Annika Parikh DO [facility] Referring Physician Date of Admission Sep 28, 2020 at 21:58 Home Medications & Allergies Home Medications Reviewed patient Home Medication Reconciliation performed by pharmacy medication reconciliations mechanical laboratory technician and/or nursing. Patients Allergies have been reviewed. Allergies Allergies Coded Allergies No Known Drug Allergies (Unverified04/18/14) Past Rwckldz-Bvgvdm-Uboypg Hx Patient Social History Marrital Status: single Employed/Student: unemployed Tobacco Use?: No Smoking Status: Never a Smoker Smokeless Tobacco Frequency: Never a User Use of E-Cig and/or Vaping dev: No Substance use?: No Alcohol Use?: No Pt feels they are or have been: No Immunizations Up To Date Date of Influenza Vaccine: Apr 18, 2014 Tetanus Booster (TDap): Unknown PED Vaccines UTD: No Date of Pneumonia Vaccine: Apr 18, 2014 Seasonal Allergies Seasonal Allergies: No Current Status Advance Directives: No Communicates: Verbally Primary Language: [place] Preferred Spoken Language: [place] Is interpretation needed?: No Sensory deficits: Other Implanted or Applied Medical D: None Past Medical History Sleep Apnea Currently Using CPAP: Yes Cardiomyopathy, Chronic Edema/Swelling, Coronary Artery Disease, High Cholesterol, Hypertension Sexually Transmitted Disease: No HIV/AIDS: No Gastroesophageal Reflux Loss of Vision: Denies Blood Disorders: No Adverse Reaction/Blood Tranf: No ANISA CHF Family Medical History Diabetes mellitus 19 MOTHER Hypertension 19 FATHER Diabetes, Hypertension Review of Systems Constitutional: see HPI Respiratory: short of breath Cardiovascular: chest pain Physical Exam Physical Exam Vital Signs Vital Signs - First Documented 09/28/20 09/29/20 09/29/20 20:17 02:20 04:00 Temp 36.8 Pulse 168 Resp 26 B/P (MAP) 134/111 (119) Pulse Ox 99 O2 Delivery Room Air O2 Flow Rate 21.00 FiO2 21 Capillary Refill : Less Than 3 Seconds Height, Weight, BMI Height: 5'10.00" Weight: 273lbs. 0.0oz. [id number]; 42.60 BMI Method:Stated General Appearance: No Apparent Distress, Chronically ill, Obese Eyes: Right Eye Normal Inspection, Right Eye PERRL HEENT: PERRL/EOMI, Normal ENT Inspection, Pharynx Normal, Moist Mucous Membranes Neck: Full Range of Motion, Normal Inspection, Non Tender Respiratory: Chest Non Tender, Lungs Clear, Normal Breath Sounds, No Accessory Muscle Use, No Respiratory Distress Cardiovascular: No Gallop, No JVD, No Murmur, Normal Peripheral Pulses, Irregularly Irregular, Tachycardia Gastrointestinal: Normal Bowel Sounds, No Organomegaly, No Pulsatile Mass, Non Tender, Soft Back: Normal Inspection, No CVA Tenderness, No Vertebral Tenderness Extremity: Normal Capillary Refill, Normal Inspection, Normal Range of Motion, Non Tender, No Calf Tenderness, Pedal Edema Neurologic/Psychiatric: Alert, Oriented x3, No Motor/Sensory Deficits, Normal Mood/Affect Skin: Normal Color, Warm/Dry Lymphatic: No Adenopathy Results Results/Procedures Labs Laboratory Tests 09/28/20 20:28 09/29/20 04:10 Patient resulted labs reviewed. Assessment/Plan Admission Diagnosis Assessment: Atrial fibrillation with rapid ventricular response Acute on chronic systolic and diastolic congestive heart failure per cardiology Hypoxia Edema Plan: Supportive care Rate control ICU care Admission Status: Inpatient Order (span 2 midnights) Reason for Inpatient Admission: Congestive heart failure Diagnosis/Problems Diagnosis/Problems (1) Acute on chronic combined systolic and diastolic congestive heart failure ANNIKA PARIKH DO Sep 29, 2020 11:48
[2020-09-29] MEDS ORDERED: METOCLOPRAMIDE INJ 10 MG/2 ML (REGLAN) ONE (15:09)
[2020-09-29] MEDS: METOCLOPRAMIDE INJ 10 MG/2 ML (REGLAN) IVP SCH ×2 (15:12→22:31)
[2020-09-30] MEDS: dilTIAZem DRIP PRE-MIX 125 ML IV SCH (00:58)
[2020-09-30 02:45] LABS: BASOPHILS % (AUTO) 0 % (0-10); EOSINOPHILS # (AUTO) 0.2 10^3/uL (0.0-0.3); EOSINOPHILS % (AUTO) 2 % (0-10); HEMATOCRIT 39 % (40-54); HEMOGLOBIN 12.7 g/dL (13.3-17.7); LYMPHOCYTES # (AUTO) 1.3 10^3/uL (1.0-4.0); LYMPHOCYTES % (AUTO) 11 % (12-44); MEAN CORPUSCULAR HEMOGLOBIN 28 pg (25-34); MEAN CORPUSCULAR HGB CONC 33 g/dL (32-36); MEAN CORPUSCULAR VOLUME 84 fL (80-99); MEAN PLATELET VOLUME 10.6 fL (9.0-12.2); MONOCYTES # (AUTO) 1.2 10^3/uL (0.0-1.0); MONOCYTES % (AUTO) 10 % (0-12); NEUTROPHILS # (AUTO) 9.3 10^3/uL (1.8-7.8); NEUTROPHILS % (AUTO) 77 % (42-75); PLATELET COUNT 283 10^3/uL (130-400); WHITE BLOOD COUNT 12.1 10^3/uL (4.3-11.0)
[2020-09-30 03:01] LABS: CALCIUM 8.7 MG/DL (8.5-10.1)
[2020-09-30 03:05] LABS: CREATININE SERUM 1.16 MG/DL (0.60-1.30); PHOSPHORUS 3.2 MG/DL (2.3-4.7)
[2020-09-30 03:07] LABS: MAGNESIUM 2.1 MG/DL (1.6-2.4)
[2020-09-30] MEDS: RT-ALBUTEROL/IPRATROPIUM 3 ML (DUONEB) VIAL INH SCH ×2 (03:24→10:07)
[2020-09-30] MEDS: POTASSIUM CL 10MEQ/50ML IVPB 50 ML IV SCH (06:10)
[2020-09-30] MEDS: KCL 20 MEQ TAB (K-DUR) PO SCH (06:10)
[2020-09-30] MEDS: MAGNESIUM 1 GM/100 ML IVPB 100 ML IV SCH (06:10)
[2020-09-30] MEDS: METOCLOPRAMIDE INJ 10 MG/2 ML (REGLAN) IVP SCH (06:17)
[2020-09-30] MEDS: BUMETANIDE 1 MG (BUMEX) TAB PO SCH (06:17)
--- NOTE | 2020-09-30 06:36 | Progress Note - Hospitalist ---
Subjective HPI/CC On Admission Date Seen by Provider: Sep 30, 2020 Chief complaint: Congestive heart failure History of present illness: This is a 49-year-old male who was just discharged from [facility] and 3 hours later he was admitted here for congestive heart failure. He has a LifeVest on. Cardiology has been consulted along with eICU. Patient denies any pain. No nausea reported. Check meds and labs. Hypotension precludes diltiazem drip. Ejection fraction is 20%. [place] [address]. Objective Exam Vital Signs Vital Signs Date Time Temp Pulse Resp B/P (MAP) Pulse Ox O2 Delivery O2 Flow Rate FiO2 09/30/20 11:31 34.9 09/30/20 11:00 104 22 95/86 (89) 96 Room Air 09/29/20 04:00 21 09/29/20 02:20 21.00 Capillary Refill : Less Than 3 Seconds Results/Procedures Lab Laboratory Tests 09/30/20 02:35 Patient resulted labs reviewed. Diagnosis/Problems Diagnosis/Problems (1) Acute on chronic combined systolic and diastolic congestive heart failure EDGAR CHOPRA DO Sep 30, 2020 06:36
[2020-09-30] MEDS ORDERED: DIGOXIN 0.25 MG (LANOXIN) TAB PO SCH (09:00)
--- NOTE | 2020-09-30 09:11 | Diagnostic Imaging Report ---
Clinical indications: Patient with heart failure. Exam: Chest x-ray PA and lateral views. Comparisons: Chest x-ray dated 02/26/2017. Findings: Stable cardiomegaly. There is no significant pulmonary vascular congestion. External administrative medical director overlying the right chest is seen. Lungs are clear. There is no pleural effusion or pneumothorax. There are degenerative spurs involving the spine. IMPRESSION: 1.: There is no interval radiographic evidence of acute cardiopulmonary process. 2: There is stable cardiomegaly with no significant pulmonary vascular congestion. Dictated by: Dictated on workstation # [id number]
--- NOTE | 2020-09-30 09:42 | Cardiology Progress Note ---
Progress Note-Cardiology Events since last exam Date Seen by Provider: Sep 30, 2020 Time Seen by Provider: 09:37 Events since last exam We are seeing him due to heart failure and atrial fibrillation. His breathing is much better this morning. He denies chest discomfort, palpitations, syncope, or ankle edema. Certain portions of this document may have been dictated utilizing voice recognition technology. Inherent to this technology, typographical and grammatical errors may exist. As much as I am diligent to identify and correct these mistakes, some errors may remain in the document. Vitals Last set of Vitals Signs Vital Signs 09/29/20 09/29/20 09/30/20 09/30/20 02:20 04:00 07:00 08:00 Temp 35.6 Resp 17 O2 Flow Rate 21.00 FiO2 21 Labs Labs Laboratory Tests 09/30/20 02:35 Exam Vital Signs Vital Signs Date Time Temp Pulse Resp B/P (MAP) Pulse Ox O2 Delivery O2 Flow Rate FiO2 09/30/20 08:00 125 93/86 (91) 93 Room Air 09/30/20 08:00 35.6 09/30/20 07:00 17 09/29/20 04:00 21 09/29/20 02:20 21.00 Physical Exam General: Alert. No acute distress. Well nourished and appears stated age. He is obese. Eye: Extraocular movements are intact. Conjunctivae are clear. There are no xanthelasma. HENT: Normocephalic. Atraumatic. Carotid pulsations 2/2 without bruits. Neck: Jugular venous pressure does not appear elevated. No thyromegaly appreciated. Respiratory: Lungs are clear to auscultation. Respirations are non-labored. Breath sounds are equal. Symmetrical chest wall expansion. Cardiovascular: Normal rate. Irregular rhythm. No murmur. No gallop. Point of maximal impulse is not appear displaced. Good pulses equal in all extremities. No edema. Gastrointestinal: Soft. Normal bowel sounds. Skin: Skin turgor is normal. There is no pallor. Musculoskeletal: No kyphosis or scoliosis appreciated. Neurologic: Alert and oriented to person, place, time. Cranial nerves 3-12 appear grossly intact. The patient has good motor tone strength in the upper and lower extremities bilaterally. Psychiatric: Cooperative. Appropriate mood & affect. Labs Laboratory Tests Test 09/30/20 02:35 Range/Units White Blood Count 12.1 H 4.3-11.0 10^3/uL Red Blood Count 4.62 4.30-5.52 10^6/uL Hemoglobin 12.7 L 13.3-17.7 g/dL Hematocrit 39 L 40-54 % Mean Corpuscular Volume 84 80-99 fL Mean Corpuscular Hemoglobin 28 25-34 pg Mean Corpuscular Hemoglobin Concent 33 32-36 g/dL Red Cell Distribution Width 14.5 10.0-14.5 % Platelet Count 283 130-400 10^3/uL Mean Platelet Volume 10.6 9.0-12.2 fL Immature Granulocyte % (Auto) 0 % Neutrophils (%) (Auto) 77 H 42-75 % Lymphocytes (%) (Auto) 11 L 12-44 % Monocytes (%) (Auto) 10 0-12 % Eosinophils (%) (Auto) 2 0-10 % Basophils (%) (Auto) 0 0-10 % Neutrophils # (Auto) 9.3 H 1.8-7.8 10^3/uL Lymphocytes # (Auto) 1.3 1.0-4.0 10^3/uL Monocytes # (Auto) 1.2 H 0.0-1.0 10^3/uL Eosinophils # (Auto) 0.2 0.0-0.3 10^3/uL Basophils # (Auto) 0.0 0.0-0.1 10^3/uL Immature Granulocyte # (Auto) 0.1 0.0-0.1 10^3/uL Sodium Level 137 135-145 MMOL/L Potassium Level 4.0 3.6-5.0 MMOL/L Chloride Level 96 L 98-107 MMOL/L Carbon Dioxide Level 27 21-32 MMOL/L Anion Gap 14 5-14 MMOL/L Blood Urea Nitrogen 22 H 7-18 MG/DL Creatinine 1.16 0.60-1.30 MG/DL Estimat Glomerular Filtration Rate 67 BUN/Creatinine Ratio 19 Glucose Level 115 H 70-105 MG/DL Calcium Level 8.7 8.5-10.1 MG/DL Phosphorus Level 3.2 2.3-4.7 MG/DL Magnesium Level 2.1 1.6-2.4 MG/DL Diagnosis/Problems Diagnosis/Problems (1) Persistent atrial fibrillation Assessment & Plan: His heart rates have improved with oral diltiazem and digoxin. The intravenous diltiazem has been discontinued. We will continue apixaban for stroke prophylaxis. I do not think his blood pressure will tolerate resuming beta-amya. I do not think he is a candidate for cardioversion due to the severe biatrial enlargement. Likewise, antiarrhythmic drug therapy would unlikely restore sinus rhythm. At some point, we may need to consider AV junction ablation and permanent biventricular pacemaker or defibrillator placement. This can be discussed with the patient with his regular gear shaper after his acute decompensation is improved. From a cardiac standpoint, the patient could probably be discharged later today or tomorrow. I have only hesitation with discharging him today is that he was just discharged from [facility] and presented to our hospital within 6 hours after discharge. (2) Acute on chronic combined systolic and diastolic congestive heart failure Assessment & Plan: Symptomatically he is much improved. His chest x-ray from this morning looks clear. I do not appreciate any heart failure on physical exam. He is on spironolactone and bumetanide. As with the atrial fibrillation, I do not believe he will tolerate beta-maya or COLTON inhibitor/ARB due to soft blood pressures. (3) Cardiomyopathy Assessment & Plan: This has been reported to be nonischemic. We will continue spironolactone. As above, due to somewhat low blood pressures, I am hesitant to restart beta-maya or COLTON inhibitor/ARB at this time. He has a LifeVest in place. (4) Mitral regurgitation Assessment & Plan: He had moderate mitral regurgitation noted on his echocardiogram from earlier this year. I suspect this is functional mitral re gurgitation related to the left ventricular dilatation. There is no indication for invasive intervention at this time. (5) Pulmonary hypertension Assessment & Plan: Most likely related to the chronic heart failure. This will need to be monitored longitudinally. (6) Morbid obesity Assessment & Plan: He needs to work on weight loss. DARIELA COX JR, MD Sep 30, 2020 09:42
[2020-09-30] MEDS: APIXABAN 5 MG (ELIQUIS) TABLET PO SCH (09:50)
[2020-09-30] MEDS: SPIRONOLACTONE 25 MG (ALDACTONE) TAB PO SCH (09:50)
--- NOTE | 2020-09-30 10:27 | Tele-ICU Progress Note ---
Progress Note video rounds completed 49 y/o male admitted with afib and RVR Cardiology on consult Was on diltiazem drip, now off On PO dilt and digoxin Pulse: 80-104 irregular, irregular, occ PVC Labs K 4.0 m.1 PLAN: as sper cardiology On apixaban for stroke reduction Possible ablation in the future Focused Exam Height, Weight, BMI Height: 5'10.00" Weight: 273lbs. 0.0oz. [id number]; 42.60 BMI Method:Stated AKIRA RICHARD MD Sep 30, 2020 10:27
--- NOTE | 2020-09-30 11:36 | Discharge Summary ---
Discharge Summary Hospital Course Was the Problem List Reviewed?: Yes Problems/Dx: (1) Persistent atrial fibrillation (2) Acute on chronic combined systolic and diastolic congestive heart failure (3) Cardiomyopathy (4) Mitral regurgitation (5) Pulmonary hypertension (6) Morbid obesity Hospital Course Date of Admission: Sep 28, 2020 at 21:58 Admission Diagnosis : Family Physician/Provider: [facility] Date of Discharge: 09/30/20 Discharge Diagnosis: Acute on chronic congestive heart failure both systolic and diastolic Hospital Course: Short course after admitted he was placed on fluid restriction and diuresis and he was monitored closely by cardiology. Education was provided regarding fluid restriction and he improved he was not on oxygen at time of discharge and was discharged in improved condition. Labs and Pending Lab Test: Laboratory Tests 09/30/20 02:35: White Blood Count 12.1H, Red Blood Count 4.62, Hemoglobin 12.7L, Hematocrit 39L, Mean Corpuscular Volume 84, Mean Corpuscular Hemoglobin 28, Mean Corpuscular Hemoglobin Concent 33, Red Cell Distribution Width 14.5, Platelet Count 283, Mean Platelet Volume 10.6, Immature Granulocyte % (Auto) 0, Neutrophils (%) (Auto) 77H, Lymphocytes (%) (Auto) 11L, Monocytes (%) (Auto) 10, Eosinophils (%) (Auto) 2, Basophils (%) (Auto) 0, Neutrophils # (Auto) 9.3H, Lymphocytes # (A uto) 1.3, Monocytes # (Auto) 1.2H, Eosinophils # (Auto) 0.2, Basophils # (Auto) 0.0, Immature Granulocyte # (Auto) 0.1, Sodium Level 137, Potassium Level 4.0, Chloride Level 96L, Carbon Dioxide Level 27, Anion Gap 14, Blood Urea Nitrogen 22H, Creatinine 1.16, Estimat Glomerular Filtration Rate 67, BUN/Creatinine Ratio 19, Glucose Level 115H, Calcium Level 8.7, Phosphorus Level 3.2, Magnesium Level 2.1 Microbiology 09/29/20 MRSA Screen - Final, Complete MRSA not isolated Home Meds Active Protonix (Pantoprazole Sodium) 40 Mg Tablet.dr 40 Mg PO DAILY Diltiazem 24Hr ER (Diltiazem HCl) 180 Mg Cap.er.24h 180 Mg PO DAILY Carvedilol 3.125 Mg Tablet 3.125 Mg PO BID Eliquis (Apixaban) 5 Mg Tablet 5 Mg PO BID Potassium Chloride 20 Meq Tablet.er 20 Meq PO DAILY Metolazone 2.5 Mg Tablet 2.5 Mg PO DAILY Lasix (Furosemide) 80 Mg Tablet 80 Mg PO DAILY Aspirin EC (Aspirin) 81 Mg Tablet.dr 81 Mg PO DAILY Spironolactone 25 Mg Tablet 25 Mg PO DAILY Digox (Digoxin) 250 Mcg Tablet 0.25 Mg PO DAILY Reported Fish Oil 1,000 mg Capsule ([place] 3 Polyunsat Fatty Acids) 1,000 Mg Cap 1,000 Mg PO DAILY Coconut Oil 1,000 Mg Capsule 1,000 Mg PO DAILY Co Q-10 100 mg Softgel (Ubidecarenone/Vit E Acetate) 1 Each Capsule 1 Cap PO DAILY Lisinopril 5 Mg Tablet 5 Mg PO DAILY LAST FILLED #30 09-12-15 Magnesium Oxide 400 Mg Tablet 400 Mg PO DAILY LAST FILLED #30 02-28-16 Assessment/Pt Instructions [facility] in 1 week Discharge Planning: <30 minutes discharge planning Discharge Instructions Discharge Diet: Cardiac Diet Activity as Tolerated: Yes Discharge Physical Examination Vital Signs Vital Signs Date Time Temp Pulse Resp B/P (MAP) Pulse Ox O2 Delivery O2 Flow Rate FiO2 09/30/20 11:31 34.9 09/30/20 11:00 104 22 95/86 (89) 96 Room Air 09/29/20 04:00 21 09/29/20 02:20 21.00 General Appearance: No Apparent Distress, WD/WN Allergies: Coded Allergies: No Known Drug Allergies (Unverified , 04/18/14) Discharge Summary Date of Admission Sep 28, 2020 at 21:58 Date of Discharge Discharge Date: Sep 30, 2020 Admission Diagnosis Assessment: Atrial fibrillation with rapid ventricular response Acute on chronic systolic and diastolic congestive heart failure per cardiology Hypoxia Edema Plan: Supportive care Rate control ICU care Discharge Diagnosis (1) Persistent atrial fibrillation Assessment & Plan: His heart rates have improved with oral diltiazem and digoxin. The intravenous diltiazem has been discontinued. We will continue apixaban for stroke prophylaxis. I do not think his blood pressure will tolerate resuming beta-maya. I do not think he is a candidate for cardioversion due to the severe biatrial enlargement. Likewise, antiarrhythmic drug therapy would unlikely restore sinus rhythm. At some point, we may need to consider AV junction ablation and permanent biventricular pacemaker or defibrillator placement. This can be discussed with the patient with his regular guest experience specialist after his acute decompensation is improved. From a cardiac standpoint, the patient could probably be discharged later today or tomorrow. I have only he sitation with discharging him today is that he was just discharged from [facility] and presented to our hospital within 6 hours after discharge. (2) Acute on chronic combined systolic and diastolic congestive heart failure Assessment & Plan: Symptomatically he is much improved. His chest x-ray from this morning looks clear. I do not appreciate any heart failure on physical exam. He is on spironolactone and bumetanide. As with the atrial fibrillation, I do not believe he will tolerate beta-maya or COLTON inhibitor/ARB due to soft blood pressures. (3) Cardiomyopathy Assessment & Plan: This has been reported to be nonischemic. We will continue spironolactone. As above, due to somewhat low blood pressures, I am hesitant to restart beta-maya or COLTON inhibitor/ARB at this time. He has a LifeVest in place. (4) Mitral regurgitation Assessment & Plan: He had moderate mitral regurgitation noted on his echocardiogram from earlier this year. I suspect this is functional mitral regurgitation related to the left ventricular dilatation. There is no indication for invasive intervention at this time. (5) Pulmonary hypertension Assessment & Plan: Most likely related to the chronic heart failure. This will need to be monitored longitudinally. (6) Morbid obesity Assessment & Plan: He needs to work on weight loss. EDGAR CHOPRA DO Sep 30, 2020 11:36
== END 2020-09-30 12:30 | disposition home or self-care (01) | DRG 292 ==
LOC: EDUNIT# 20:06 → ER 20:09 → ICU 21:58
PROVIDERS: ADMIT Internal Medicine; ATTEND Internal Medicine
DX: I11.0 Hypertensive heart disease with heart failure (principal); I48.19 Other persistent atrial fibrillation; I48.92 Unspecified atrial flutter; I50.43 Acute on chronic combined systolic (congestive) and diastolic (congestive) heart failure; Z79.82 Long term (current) use of aspirin; Z79.899 Other long term (current) drug therapy; K21.9 Gastro-esophageal reflux disease without esophagitis; Z20.822 Contact with and (suspected) exposure to COVID-19; I42.8 Other cardiomyopathies; G47.33 Obstructive sleep apnea (adult) (pediatric); I25.10 Atherosclerotic heart disease of native coronary artery without angina pectoris; E78.00 Pure hypercholesterolemia, unspecified; R09.02 Hypoxemia; I34.0 Nonrheumatic mitral (valve) insufficiency; E66.01 Morbid (severe) obesity due to excess calories; I27.20 Pulmonary hypertension, unspecified; Z79.01 Long term (current) use of anticoagulants
CPT/HCPCS: 36415; 71045; 71046; 80048; 80053; 80061; 80162; 82947; 83735; 83874; 83880; 84100; 84484; 85025; 85610; 85730; 87081; 87636; 93005; 93041; 94660

== ENCOUNTER → 2020-11-13 | Day surgery (SDC) | payer OTHER ==
[2020-11-13] VITALS (10 sets, daily range): BP systolic 90–127; BP diastolic 65–97
[~2020-11-13] VITALS: Ht 177.8 cm; Wt 127.3 kg
[~2020-11-13] MED LIST changes: +DIGO250T3 PO; +DILT300C49 PO; +DIPH25TA31 PO; +DOCU100C37 PO; +FURO80TA3 PO; +LISI10TA25 PO; +MULT-1067 PO; +NS IV 1000 ML 1,000 ML IV SCH; +NS IV 1000 ML 1,000 ML ONE; +[UNRECOGNIZED DRUG - OTHER] PO; +proPOfol 200 MG/20 ML (DIPRIVAN) VIAL IV ONE
[2020-11-13 08:59] LABS: HEMATOCRIT 47 % (40-54); HEMOGLOBIN 15.8 g/dL (13.3-17.7); MEAN CORPUSCULAR HEMOGLOBIN 26 pg (25-34); MEAN CORPUSCULAR HGB CONC 34 g/dL (32-36); MEAN CORPUSCULAR VOLUME 77 fL (80-99); MEAN PLATELET VOLUME 10.7 fL (9.0-12.2); PLATELET COUNT 254 10^3/uL (130-400); WHITE BLOOD COUNT 8.6 10^3/uL (4.3-11.0)
[2020-11-13 09:17] LABS: INR 1.2 (0.8-1.4); PROTHROMBIN TIME PATIENT 15.1 SEC (12.2-14.7)
[2020-11-13 09:22] LABS: BILIRUBIN,TOTAL 1.2 MG/DL (0.1-1.0); CALCIUM 9.5 MG/DL (8.5-10.1); CREATININE SERUM 1.04 MG/DL (0.60-1.30); POTASSIUM 3.3 MMOL/L (3.6-5.0); TOTAL PROTEIN 7.7 GM/DL (6.4-8.2)
--- NOTE | 2020-11-13 09:45 | Anesthesia-General Post-Op ---
MAC Patient Condition Mental Status/LOC: Same as Preop Cardiovascular: Satisfactory Nausea/Vomiting: Absent Respiratory: Satisfactory Pain: Controlled Complications: Absent Post Op Complications Complications None Follow Up Care/Instructions Patient Instructions None needed. Anesthesiology Discharge Order Discharge Order Patient is doing well, no complaints, stable vital signs, no apparent adverse anesthesia problems. No complications reported per nursing. ADILIA GUERRA CRNA Nov 13, 2020 09:45
--- NOTE | 2020-11-13 14:42 | OPERATIVE REPORT ---
DATE OF SERVICE: 11/13/2020 EXTERNAL ELECTRICAL CARDIOVERSION REPORT PREOPERATIVE DIAGNOSIS: Atrial fibrillation with rapid ventricular response. POSTOPERATIVE DIAGNOSIS: Sinus rhythm. PROCEDURE PERFORMED: External electrical cardioversion. INDICATIONS FOR PROCEDURE: The patient is a 49-year-old gentleman, who has symptomatic atrial fibrillation. Symptoms have not been well controlled with medications. External electrical cardioversion was carried out today after having obtained an informed consent. DESCRIPTION OF PROCEDURE: [facility] The nurse journalist provided a short acting anesthesia. A 120 joules of biphasic shock did not convert him to sinus rhythm. A 200 joules biphasic shock did convert atrial fibrillation into sinus rhythm. He tolerated the procedure well. Job ID: [id number] DocumentID: [id number] Dictated Date: 11/13/2020 09:35:34 Window Glazier Date: 11/13/2020 14:41:50 Dictated By: MICHAEL CADENA MD, MA, FACP, FACC,
== END ==
LOC: CARD 10:00
PROVIDERS: ATTEND Internal Medicine Cardiovascular Disease
DX: I48.0 Paroxysmal atrial fibrillation (principal); I50.22 Chronic systolic (congestive) heart failure; I08.1 Rheumatic disorders of both mitral and tricuspid valves; I42.8 Other cardiomyopathies; I42.0 Dilated cardiomyopathy; G47.33 Obstructive sleep apnea (adult) (pediatric); I45.89 Other specified conduction disorders; E66.9 Obesity, unspecified; N52.9 Male erectile dysfunction, unspecified; R59.0 Localized enlarged lymph nodes; Z87.891 Personal history of nicotine dependence; Z79.82 Long term (current) use of aspirin; Z79.899 Other long term (current) drug therapy; Z79.01 Long term (current) use of anticoagulants; Z68.41 Body mass index [BMI] 40.0-44.9, adult
CPT/HCPCS: 36415; 80053; 80061; 85027; 85610; 85730; 87081; 92960; 93005; 93306

== ENCOUNTER → 2020-11-16 | Outpatient (CLI) | payer OTHER ==
[~2020-11-16] MED LIST changes: +CATHETER FLUSH 10 ML SYR IV PRN; +HEParin (CENTRAL IV FLUSH) 500 UNIT/5 ML SYR ONE; +HEParin 1000 UNIT/ML (10ML VIAL) FOR BOLUS IV SCH; -NS IV 1000 ML 1,000 ML IV SCH; -NS IV 1000 ML 1,000 ML ONE; -proPOfol 200 MG/20 ML (DIPRIVAN) VIAL IV ONE
--- NOTE | 2020-11-20 14:09 | STRESS TEST ---
DATE OF SERVICE: 11/16/2020 RADIONUCLIDE VENTRICULOGRAPHY ORDERING PHYSICIAN: Vanessa Hays APRN PRIMARY PHYSICIAN: [facility]. CLINICAL DIAGNOSIS: Dilated cardiomyopathy. Autologous red blood cells tagged with 31.3 mCi of technetium-99m were infused. Gated images exhibit global hypokinesis of left ventricle. Left ventricular ejection fraction is calculated to be 35%. There does not appear to be any distinct regional wall motion abnormality. CONCLUSIONS: Global hypokinesis of left ventricle with a calculated ejection fraction of 35%. Job ID: [id number] DocumentID: [id number] Dictated Date: 11/20/2020 11:45:28 Assistant Plant Control Operator Date: 11/20/2020 14:09:07 Dictated By: MICHAEL CADENA MD, MA, FACP, FACC,
== END ==
LOC: CARD 13:31
PROVIDERS: ATTEND Nurse Practitioner Family
DX: I42.0 Dilated cardiomyopathy (principal)
CPT/HCPCS: 78472; A9560

== ENCOUNTER → 2020-12-03 | Outpatient (CLI) | payer OTHER ==
[~2020-12-03] MED LIST changes: -CATHETER FLUSH 10 ML SYR IV PRN; -HEParin (CENTRAL IV FLUSH) 500 UNIT/5 ML SYR ONE; -HEParin 1000 UNIT/ML (10ML VIAL) FOR BOLUS IV SCH; -MAGN400T8 PO; +MGX400T PO
== END ==
LOC: CARD 14:00
PROVIDERS: ATTEND Nurse Practitioner Family
DX: I51.7 Cardiomegaly (principal); I34.0 Nonrheumatic mitral (valve) insufficiency; I42.0 Dilated cardiomyopathy
CPT/HCPCS: 93306

== ENCOUNTER → 2021-03-14 | Outpatient (CLI) | payer OTHER ==
[~2021-03-14] MED LIST changes: -LISI-729 PO; +LISI5TAB20 PO
== END ==
LOC: CARD 09:58
PROVIDERS: ATTEND Nurse Practitioner Family
DX: I34.0 Nonrheumatic mitral (valve) insufficiency (principal); I51.7 Cardiomegaly; I51.89 Other ill-defined heart diseases; I42.0 Dilated cardiomyopathy
CPT/HCPCS: 93306